=== PATIENT | female | born 1970 | race African-American/Black ===

== ENCOUNTER 2018-09-08 18:07 | Emergency (ER) | payer MEDICAID, OTHER ==
[~2018-09-08] VITALS: Ht 154.9 cm; Wt 86.2 kg
[2018-09-08 18:35] LABS: BASOPHILS % (AUTO) 0 % (0-10); EOSINOPHILS # (AUTO) 0.1 10^3/uL (0.0-0.3); EOSINOPHILS % (AUTO) 3 % (0-10); HEMATOCRIT 37 % (35-52); HEMOGLOBIN 11.4 G/DL (11.5-16.0); LYMPHOCYTES # (AUTO) 2.1 X 10^3 (1.0-4.0); LYMPHOCYTES % (AUTO) 40 % (12-44); MEAN CORPUSCULAR HEMOGLOBIN 26 PG (25-34); MEAN CORPUSCULAR HGB CONC 31 G/DL (32-36); MEAN CORPUSCULAR VOLUME 84 FL (80-99); MEAN PLATELET VOLUME 9.8 FL (7.4-10.4); MONOCYTES # (AUTO) 0.5 X 10^3 (0.0-1.0); MONOCYTES % (AUTO) 10 % (0-12); NEUTROPHILS # (AUTO) 2.4 X 10^3 (1.8-7.8); NEUTROPHILS % (AUTO) 46 % (42-75); PLATELET COUNT 242 10^3/uL (130-400); RED CELL DISTRIBUTION WIDTH 16.1 % (10.0-14.5); WHITE BLOOD COUNT 5.2 10^3/uL (4.3-11.0)
[2018-09-08] MEDS ORDERED: VENL150C98 PO (18:46)
[2018-09-08] MEDS ORDERED: GABA-488 PO (18:46)
[2018-09-08] MEDS ORDERED: METO50TA15 PO (18:46)
[2018-09-08] MEDS ORDERED: HYDR-3816 PO (18:46)
[2018-09-08] MEDS ORDERED: TIZA4TAB3 PO (18:46)
[2018-09-08] MEDS ORDERED: QUET300T71 PO (18:46)
[2018-09-08] MEDS ORDERED: ZIPR20CA24 PO (18:46)
[2018-09-08 18:53] LABS: ERYTHROCYTE SEDIMENTATION RATE 9 MM/HR (0-20)
[2018-09-08 18:55] LABS: ALANINE AMINOTRANSFERASE 34 U/L (0-55); ALBUMIN 4.2 GM/DL (3.2-4.5); ALKALINE PHOSPHATASE 50 U/L (40-136); BILIRUBIN,TOTAL 0.2 MG/DL (0.1-1.0); BUN/CREATININE RATIO 12; CALCIUM 9.6 MG/DL (8.5-10.1); CARBON DIOXIDE 27 MMOL/L (21-32); CHLORIDE 103 MMOL/L (98-107); CREATININE SERUM 0.78 MG/DL (0.60-1.30); GFR ESTIMATED > 60; GLUCOSE 102 MG/DL (70-105); POTASSIUM 4.2 MMOL/L (3.6-5.0); SODIUM 141 MMOL/L (135-145); TOTAL PROTEIN 7.2 GM/DL (6.4-8.2); URIC ACID 5.9 MG/DL (2.6-7.2)
--- NOTE | 2018-09-08 19:29 | ED General ---
General Chief Complaint: General Problems/Pain Stated Complaint: FLUID RETENTION Nursing Triage Note: PT REPORTS LEG SWELLING FOR 3 DAYS. PT REPORTS SHE ALSO GETS FATIGUED EASILY. PT WAS SEEN AT [facility] IN [facility] AND WAS TOLD TO ELEVATE FEET. PT COMPLAINS OF LEG SORENESS DUE TO SWELLING. Nursing Sepsis Screen: No Definite Risk Source of Information: Patient Exam Limitations: No Limitations History of Present Illness Date Seen by Provider: Sep 08, 2018 Time Seen by Provider: 18:21 Allergies and Home Medications Allergies Coded Allergies: Penicillins (Unverified Allergy, Unknown, 09/08/18) ibuprofen (Unverified Allergy, Unknown, 09/08/18) Home Medications Gabapentin 300 Mg Capsule, 300 MG PO TID, (Reported) Hydrocodone/Acetaminophen 1 Each Tablet, 325 MG PO TID PRN for PAIN-MODERATE TO SEVERE, (Reported) Metoprolol Tartrate 50 Mg Tablet, 50 MG PO BID, (Reported) Quetiapine Fumarate 300 Mg Tab.er.24h, 300 MG PO DAILY, (Reported) Tizanidine HCl 4 Mg Tablet, 4 MG PO Q8H PRN for BACK PAIN, (Reported) Venlafaxine HCl 150 Mg Cap.er.24h, 150 MG PO DAILY, (Reported) Ziprasidone HCl 20 Mg Capsule, 20 MG PO DAILY, (Reported) Past Drviqmd-Bkjmtb-Djkuhb Hx Patient Social History Alcohol Use: Occasionally Uses Alcohol Beverage of Choice: Beer Recreational Drug Use: No Smoking Status: Current Everyday Smoker Type Used: Cigarettes Recent Foreign Travel: No Contact w/Someone Who Travel: No Recent Infectious Disease Expo: No Recent Hopitalizations: No Seasonal Allergies Seasonal Allergies: No Past Medical History Surgeries: Yes Adenoidectomy, Gallbladder, Hysterectomy Respiratory: No Cardiac: No Neurological: Yes Neuropathy 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 oz. 86.700852wd; BMI Method:Stated Progress/Results/Core Measures Suspected Sepsis Recent Fever Within 48 Hours: No Infection Criteria Present: None New/Unexplained Altered Menta: No Sepsis Screen: No Definite Risk SIRS Temperature:96.1 Pulse: 89 Respiratory Rate: 18 Laboratory Tests 09/08/18 18:20: White Blood Count 5.2 Blood Pressure 144 /71 Mean: 95 Laboratory Tests 09/08/18 18:20: Creatinine 0.78, Platelet Count 242, Total Bilirubin 0.2 Results/Orders Lab Results Laboratory Tests Test 09/08/18 18:20 Range/Units White Blood Count 5.2 4.3-11.0 10^3/uL Red Blood Count 4.39 4.35-5.85 10^6/uL Hemoglobin 11.4 L 11.5-16.0 G/DL Hematocrit 37 35-52 % Mean Corpuscular Volume 84 80-99 FL Mean Corpuscular Hemoglobin 26 25-34 PG Mean Corpuscular Hemoglobin Concent 31 L 32-36 G/DL Red Cell Distribution Width 16.1 H 10.0-14.5 % Platelet Count 242 130-400 10^3/uL Mean Platelet Volume 9.8 7.4-10.4 FL Neutrophils (%) (Auto) 46 42-75 % Lymphocytes (%) (Auto) 40 12-44 % Monocytes (%) (Auto) 10 0-12 % Eosinophils (%) (Auto) 3 0-10 % Basophils (%) (Auto) 0 0-10 % Neutrophils # (Auto) 2.4 1.8-7.8 X 10^3 Lymphocytes # (Auto) 2.1 1.0-4.0 X 10^3 Monocytes # (Auto) 0.5 0.0-1.0 X 10^3 Eosinophils # (Auto) 0.1 0.0-0.3 10^3/uL Basophils # (Auto) 0.0 0.0-0.1 10^3/uL Erythrocyte Sedimentation Rate 9 0-20 MM/HR Sodium Level 141 135-145 MMOL/L Potassium Level 4.2 3.6-5.0 MMOL/L Chloride Level 103 98-107 MMOL/L Carbon Dioxide Level 27 21-32 MMOL/L Anion Gap 11 5-14 MMOL/L Blood Urea Nitrogen 9 7-18 MG/DL Creatinine 0.78 0.60-1.30 MG/DL Estimat Glomerular Filtration Rate > 60 BUN/Creatinine Ratio 12 Glucose Level 102 70-105 MG/DL Uric Acid 5.9 2.6-7.2 MG/DL Calcium Level 9.6 8.5-10.1 MG/DL Corrected Calcium 9.4 8.5-10.1 MG/DL Total Bilirubin 0.2 0.1-1.0 MG/DL Aspartate Amino Transf (AST/SGOT) 31 5-34 U/L Alanine Aminotransferase (ALT/SGPT) 34 0-55 U/L Alkaline Phosphatase 50 40-136 U/L C-Reactive Protein High Sensitivity 0.49 0.00-0.50 MG/DL B-Type Natriuretic Peptide 15.1 <100.0 PG/ML Total Protein 7.2 6.4-8.2 GM/DL Albumin 4.2 3.2-4.5 GM/DL My Orders Orders - MARIBELL SUNG Cbc With Automated Diff (09/08/18 18:21) Comprehensive Metabolic Panel (09/08/18 18:21) Erythrocyte Sedimentation Rate (09/08/18 18:21) Hs C Reactive Protein (09/08/18 18:21) BNP (09/08/18 18:21) Uric Acid (09/08/18 18:21) Saline Lock/Iv-Start (09/08/18 18:22) Vital Signs/I&O 09/08/18 18:14 Temp 96.1 Pulse 89 Resp 18 B/P (MAP) 144/71 (95) Pulse Ox 96 Capillary Refill : Less Than 3 Seconds Blood Pressure Mean: 95 Departure Impression Primary Impression: Lower extremity edema Disposition: 01 HOME, SELF-CARE Condition: Stable/Unchanged Departure-Patient Inst. Decision time for Depature: 19:27 Referrals: NO,LOCAL PHYSICIAN (PCP) Primary Care Physician Patient Instructions: Dependent Edema (DC) Add. Discharge Instructions: Elevate her lower extremities as much as possible. Wear the compression stockings during the day and remove them at night as needed to help control your swelling. Follow-up with your primary care provider within 1 week for recheck. Return back to the emergency room for worsening symptoms or concerns as needed. All discharge instructions reviewed with patient and/or family. Voiced understanding. MARIBELL SUNG Sep 08, 2018 19:29
[2018-09-08 19:38] VITALS: BP 147/101
== END 2018-09-08 19:38 | disposition home or self-care (01) ==
LOC: EDUNIT# 18:07 → ER 18:09
DX: R60.0 Localized edema (principal); K58.9 Irritable bowel syndrome, unspecified; M19.90 Unspecified osteoarthritis, unspecified site; F17.210 Nicotine dependence, cigarettes, uncomplicated; Z88.0 Allergy status to penicillin; Z88.6 Allergy status to analgesic agent; Z90.710 Acquired absence of both cervix and uterus
CPT/HCPCS: 36415; 80053; 83880; 84550; 85025; 85652; 86141; 99281

== ENCOUNTER 2018-10-04 13:38 | Emergency (ER) | payer MEDICAID ==
[~2018-10-04] VITALS: Ht 154.9 cm; Wt 90.3 kg
[~2018-10-04 13:38] MED LIST: GABA-488 PO; HYDR-3816 PO; METO50TA15 PO; QUET300T71 PO; TIZA4TAB3 PO; VENL150C98 PO; ZIPR20CA24 PO
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
--- OUTSIDE RECORDS SUMMARY | 2018-10-04 13:46 | XMS REPORT ---
Author Author VARSHA HOLDEN Organization 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 [address], [place] [address] Dec, Bipolar II disorder F31.81 [facility] [address] [place] [address] Dec, [facility] [address] [place] [address] Dec, [facility] [id number] [place] [address] Dec, [facility] [address] [address] Nov, 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 [id number] [place] [address] October, Depressive disorder, not elsewhere classified F32.9 and Anxiety state, unspecified F41.1 [facility] [id number] [place], [place] [address] October, Sore throat J02.9 and Strep pharyngitis J02.0 [place] [facility] [id number] [place] [address] October, Chronic post-traumatic stress disorder F43.12 ; Anxiety state, unspecified F41.1 and Depressive disorder, not elsewhere classified F32.9 [place] [facility] [address] [place] [address] October, Depressive disorder, not elsewhere classified F32.9 and Anxiety state, unspecified F41.1 [place] [address] [place] [address] October, Depressive disorder, not elsewhere classified F32.9 and Anxiety state, unspecified F41.1 IMMUNIZATIONS No Known Immunizations SOCIAL HISTORY Never Assessed REASON FOR VISIT Anxiety concerns PLAN OF CARE VITAL SIGNS MEDICATIONS No Known Medications RESULTS No Results PROCEDURES No Known procedures INSTRUCTIONS MEDICATIONS ADMINISTERED No Known Medications MEDICAL (GENERAL) HISTORY Type Description Date Medical [...] Onesimo Torres Hospitalization History Drug Rehab Inpatient [facility] 1993 Hospitalization History Drug Rehab Inpatient [facility] 2002 Hospitalization History childbirth x 4 89, 91,92, 94
--- OUTSIDE RECORDS SUMMARY | 2018-10-04 13:46 | XMS REPORT ---
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 1993 Hospitalization History Drug Rehab Inpatient [facility] 2002 Hospitalization History childbirth x 4 89, 91,92, 94
--- OUTSIDE RECORDS SUMMARY | 2018-10-04 13:46 | XMS REPORT ---
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 293793556 Problem Chronic post-traumatic stress disorder F43.12 Active 878000402 ALLERGIES Substance Reaction Event Type Date Status Adhesive Tape Unknown Drug Allergy October, Active SulfADIAZINE Unknown Drug Allergy October, Active Silicone Unknown Drug Allergy October, Active PrednisoLONE Unknown Drug Allergy October, Active Penicillamine Unknown Drug Allergy October, Active Neosporin Unknown Drug Allergy October, Active Neomycin Sulfate Unknown Drug Allergy October, Active Flagyl Unknown Drug Allergy October, Active Erythromycin Unknown Drug Allergy October, Active SOCIAL HISTORY Never Assessed PLAN OF CARE Activity Details Follow Up 3 Weeks Reason: VITAL SIGNS Height 62.0 in 2016-10-27 Weight 149.2 lbs 2016-10-27 Heart Rate 96 bpm 2016-10-27 Respiratory Rate 20 2016-10-27 BMI 27.29 kg/m2 2016-10-27 Blood pressure systolic 89 mmHg 2016-10-27 Blood pressure diastolic 56 mmHg 2016-10-27 MEDICATIONS Medication Instructions Dosage Frequency Start Date End Date Duration Status Tizanidine HCl 4 MG Orally every 6 hours 1 tablet as needed 6h Active Seroquel 100 mg Active Effexor XR 75 MG Orally Once a day 1 capsule with food 24h 30 days Active Xanax 0.25 MG Orally 3 times a day 1 tablet 8h 28 days Active Mirtazapine 15 MG Orally Once a day 1 tablet on the tongue and allow to dissolve at bedtime 24h October, 30 day(s) Active Flonase Allergy Relief 50 MCG/ACT Nasally Once a day 1 spray in each nostril 24h Active Premarin 0.45 MG Orally Daily for Three Weeks, 1 Week off 1 tablet Active Atorvastatin Calcium 20 MG Orally Once a day 1 tablet 24h Active Effexor XR 150 MG Orally Once a day 1 capsule with food 24h October, 30 day(s) Active Gabapentin 300 MG Orally 3 times a day 1 tablet 8h Active Cholecalciferol 3000 UNIT Orally Once a day 1 tablet 24h Active Lisinopril-Hydrochlorothiazide 20-12.5 MG Orally Once a day 1 tablet 24h Active Hydrocodone-Acetaminophen 7.5-325 MG Orally every 8 hrs 1 tablet as needed 8h Active Triamcinolone Acetonide 0.1 % Externally Twice a day 1 application to affected area 12h Active MiraLax - Orally Once a day 1 packet mixed with 8 ounces of fluid 24h Active DiphenhydrAMINE HCl 25 MG Orally every 6 hrs 1 capsule as needed 6h Active Claritin-D 12 Hour 5-120 MG Orally every 12 hrs 1 tablet as needed 12h Active Albuterol Sulfate HFA 108 (90 Base) MCG/ACT Inhalation every 4 hrs 2 puffs as needed 4h Active RESULTS No Results PROCEDURES No Known procedures IMMUNIZATIONS No Known Immunizations MEDICAL (GENERAL) HISTORY [...] Onesimo Torres Hospitalization History Drug Rehab Inpatient [facility] 1993 Hospitalization History Drug Rehab Inpatient [facility] 2002 Hospitalization History childbirth x 4 89, 91,92, 94
--- OUTSIDE RECORDS SUMMARY | 2018-10-04 13:46 | XMS REPORT ---
Author Author VARSHA HOLDEN Organization [facility] Address [address] [place] [address] Care Team Providers Care Nuclear Plant Equipment Operator Name Role Phone AIDEEDEJUAN INIGUEZA Unavailable PROBLEMS Type Condition ICD9-CM Code MKH16-FF Code Onset Dates Condition Status SNOMED Code Problem Bipolar II disorder F31.81 Active 01738456 Problem Borderline personality disorder F60.3 Active 79485631 Problem Depressive disorder, not elsewhere classified F32.9 Active 40457359 Problem Anxiety state, unspecified F41.1 Active 307805150 Problem Methamphetamine use disorder, severe, in early remission, 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 394507863 Problem Chronic post-traumatic stress disorder F43.12 Active 381102145 ALLERGIES No Information ENCOUNTERS Encounter Location Date Diagnosis [facility] [address] [place] [address] Jan, Methamphetamine use disorder, severe, in early remission, 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 ; Borderline personality disorder F60.3 ; Bipolar II disorder F31.81 and Chronic post-traumatic stress disorder F43.12 [facility] [address], [place] [address] Dec, Bipolar II disorder F31.81 [facility] [address] [place] [address] Dec, [facility] [address] [place] [address]- [address] Dec, [facility] [id number] [place] [address] Dec, [facility] [address] [address] Nov, [facility] [id number] [place] [address] Nov, Bipolar II disorder F31.81 ; Borderline personality disorder F60.3 ; Methamphetamine use disorder, severe, in early remission, 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 and Chronic post-traumatic stress disorder F43.12 [facility] [address] [place] [address] October, Pharyngitis due to other organism J02.8 [place] [facility] [id number] [place] [address] October, Depressive disorder, not elsewhere classified F32.9 and Anxiety state, unspecified F41.1 [facility] [id number] [place] [phone] October, Sore throat J02.9 and Strep pharyngitis J02.0 [place] [id number] [place] [address] October, Chronic post-traumatic stress disorder F43.12 ; Anxiety state, unspecified F41.1 and Depressive disorder, not elsewhere classified F32.9 [place] [address] [place] [address] 7[address]72- [address] October, Depressive disorder, not elsewhere classified F32.9 and Anxiety state, unspecified F41.1 [place] [address] [place] [address]- [address] October, Depressive disorder, not elsewhere classified F32.9 and Anxiety state, unspecified F41.1 IMMUNIZATIONS No Known Immunizations SOCIAL HISTORY Never Assessed REASON FOR VISIT med refill PLAN OF CARE VITAL SIGNS MEDICATIONS Medication Instructions Dosage Frequency Start Date End Date Duration Status Effexor XR 150 MG Orally Once a day in morning 1 capsule with food October 30 days Active Latuda 40 MG Orally Once a day 1 tablet with dinner 24h Nov, 30 day(s) Active HydrOXYzine HCl 50 MG Orally 3 times a day 1 tablet as needed 8h 30 days Active Mirtazapine 15 MG Orally Once a day at night 1 tablet on the tongue and allow to dissolve at bedtime October, 30 days Active RESULTS No Results PROCEDURES No Known [...] Onesimo Torres Hospitalization History Drug Rehab Inpatient [facility] 1993 Hospitalization History Drug Rehab Inpatient [facility] 2002 Hospitalization History childbirth x 4 89, 91,92, 94
--- OUTSIDE RECORDS SUMMARY | 2018-10-04 13:47 | XMS REPORT ---
Author Author VARSHA HOLDEN Organization [facility] Address [address] [place] [address] Care Team Providers Care Strategic Insights Lead Name Role Phone AIDEEDEJUAN INIGUEZA Unavailable PROBLEMS Type Condition ICD9-CM Code ENH51-MB Code Onset Dates Condition Status SNOMED Code Problem Bipolar II disorder F31.81 Active 63299066 Problem Borderline personality disorder F60.3 Active 32677303 Problem Depressive disorder, not elsewhere classified F32.9 Active 03473137 Problem Anxiety state, unspecified F41.1 Active 369305999 Problem Methamphetamine use disorder, severe, in early remission, 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 413688663 Problem Chronic post-traumatic stress disorder F43.12 Active 212930001 ALLERGIES No Information ENCOUNTERS Encounter Location Date Diagnosis [facility] [address] [place] [address] Jan, Methamphetamine use disorder, severe, in early remission, 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 ; Borderline personality disorder F60.3 ; Bipolar II disorder F31.81 and Chronic post-traumatic stress disorder F43.12 [facility] [address] [place] [address] Dec, Bipolar II disorder F31.81 [facility] [address] [place] [address] Dec, [facility] [address] [place] [address]- [address] Dec, [facility] [id number] [place] [address]14- [address] Dec, [facility] [address] [place] [address] Nov, [facility] [id number] [place] [phone] Nov, Bipolar II disorder F31.81 ; Borderline personality disorder F60.3 ; Methamphetamine use disorder, severe, in early remission, 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 and Chronic post-traumatic stress disorder F43.12 [facility] [address] [place] [address] October, Pharyngitis due to other organism J02.8 [place] [id number] [place] [address]- [address] October, Depressive disorder, not elsewhere classified F32.9 and Anxiety state, unspecified F41.1 [facility] [id number] [place], [place] [address] October, Sore throat J02.9 and Strep pharyngitis J02.0 [place] [id number] [place] [address]- [address] October, Chronic post-traumatic stress disorder F43.12 ; Anxiety state, unspecified F41.1 and Depressive disorder, not elsewhere classified F32.9 [place] [address] [place] [address] October, Depressive disorder, not elsewhere classified F32.9 and Anxiety state, unspecified F41.1 [place] [address] [place] [address]- [address] October, Depressive disorder, not elsewhere classified F32.9 and Anxiety state, unspecified F41.1 IMMUNIZATIONS No Known Immunizations SOCIAL HISTORY Never Assessed REASON FOR VISIT appointment PLAN OF CARE VITAL SIGNS MEDICATIONS No [...] Onesimo Torres Hospitalization History Drug Rehab Inpatient [facility] 1993 Hospitalization History Drug Rehab Inpatient [facility] 2002 Hospitalization History childbirth x 4 89, 91,92, 94
--- OUTSIDE RECORDS SUMMARY | 2018-10-04 13:48 | XMS REPORT ---
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 1993 Hospitalization History Drug Rehab Inpatient [facility] 2002 Hospitalization History childbirth x 4 89, 91,92, 94
--- OUTSIDE RECORDS SUMMARY | 2018-10-04 13:48 | XMS REPORT ---
Author Author VARSHA HOLDEN Organization [facility] Address [address] [place] [address] Care Team Providers Care Equipment Specialist Name Role Phone AIDEEDEJUAN INIGUEZA Unavailable PROBLEMS Type Condition ICD9-CM Code XDS40-PI Code Onset Dates Condition Status SNOMED Code Problem Bipolar II disorder F31.81 Active 90410772 Problem Borderline personality disorder F60.3 Active 78250104 Problem Depressive disorder, not elsewhere classified F32.9 Active 23805141 Problem Anxiety state, unspecified F41.1 Active 922421991 Problem Methamphetamine use disorder, severe, in early remission, 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 141388715 Problem Chronic post-traumatic stress disorder F43.12 Active 276963385 ALLERGIES Substance Reaction Event Type Date Status Adhesive Tape Unknown Drug Allergy Nov, Active SulfADIAZINE Unknown Drug Allergy Nov, Active Silicone Unknown Drug Allergy Nov, Active PrednisoLONE Unknown Drug Allergy Nov, Active Penicillamine Unknown Drug Allergy Nov, Active Neosporin Unknown Drug Allergy Nov, Active Neomycin Sulfate Unknown Drug Allergy Nov, Active Flagyl Unknown Drug Allergy Nov, Active Erythromycin Unknown Drug Allergy Nov, Active ENCOUNTERS Encounter Location Date Diagnosis [facility] [address] [place] [address] Jan, Methamphetamine use disorder, severe, in early remission, 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 ; Borderline personality disorder F60.3 ; Bipolar II disorder F31.81 and Chronic post-traumatic stress disorder F43.12 [facility] [id number] [place] [address] Dec, Bipolar II disorder F31.81 [facility] [address] [place] [address] 85877[address] Dec, [facility] [id number] [place] [address] 98179[address] Dec, [facility] [address] [address] Dec, [facility] [id number] [place] [address] 50228[address] Nov, [facility] [id number] [place] [address] 79752[address] Nov, Bipolar II disorder F31.81 ; Borderline personality disorder F60.3 ; Methamphetamine use disorder, severe, in early remission, 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 and Chronic post-traumatic stress disorder F43.12 [facility] [id number] [place] [address] October, Pharyngitis due to other organism J02.8 [place] [id number] [place] [address] October, Depressive disorder, not elsewhere classified F32.9 and Anxiety state, unspecified F41.1 [facility] [address] [place] [address] October, Sore throat J02.9 and Strep pharyngitis J02.0 [facility] [address] [place] [address] 81091- 67[address] October, Chronic post-traumatic stress disorder F43.12 ; Anxiety state, unspecified F41.1 and Depressive disorder, not elsewhere classified F32.9 [facility] [address] [place] [address] 55206- [address] October, Depressive disorder, not elsewhere classified F32.9 and Anxiety state, unspecified F41.1 [facility] [address] [place] [address] 24623[address] October, Depressive disorder, not elsewhere classified F32.9 and Anxiety state, unspecified F41.1 IMMUNIZATIONS No Known Immunizations SOCIAL HISTORY Never Assessed REASON FOR VISIT aurelia - Yasir DILLARD PLAN OF CARE Activity Details Follow Up 3 Weeks Reason: VITAL SIGNS Height 62.0 in 2016-12-09 Weight 153.6 lbs 2016-12-09 Heart Rate 104 bpm 2016-12-09 Respiratory Rate 22 2016-12-09 BMI 28.09 kg/m2 2016-12-09 Blood pressure systolic 118 mmHg 2016-12-09 Blood pressure diastolic 75 mmHg 2016-12-09 MEDICATIONS Medication Instructions Dosage Frequency Start Date End Date Duration Status Atorvastatin Calcium 20 MG Orally Once a day 1 tablet 24h Active MiraLax - Orally Once a day 1 packet mixed with 8 ounces of fluid 24h Active Lisinopril-Hydrochlorothiazide 20-12.5 MG Orally Once a day 1 tablet 24h Active Flonase Allergy Relief 50 MCG/ACT Nasally Once a day 1 spray in each nostril 24h Active Claritin-D 12 Hour 5-120 MG Orally every 12 hrs 1 tablet as needed 12h Active Latuda 40 MG Orally Once a day 1 tablet with dinner 24h Nov, 30 day(s) Active Gabapentin 300 MG Orally at bedtime 1 tablet Active Triamcinolone Acetonide 0.1 % Externally Twice a day 1 application to affected area 12h Active HydrOXYzine HCl 50 MG Orally 3 times a day 1 tablet as needed 8h 30 days Active Effexor XR 150 MG Orally Once a day in morning 1 capsule with food October 30 days Active Albuterol Sulfate HFA 108 (90 Base) MCG/ACT Inhalation every 4 hrs 2 puffs as needed 4h Active Tizanidine HCl 4 MG Orally every 6 hours 1 tablet as needed 6h Active Premarin 0.45 MG Orally Daily for Three Weeks, 1 Week off 1 tablet Active Mirtazapine 15 MG Orally Once a day at night 1 tablet on the tongue and allow to dissolve at bedtime October, 30 days Active DiphenhydrAMINE HCl 25 MG Orally every 6 hrs 1 capsule as needed 6h Active Hydrocodone-Acetaminophen 10-325 MG Orally every 8 hrs 1 tablet as needed 8h Active RESULTS No Results PROCEDURES No Known [...] Onesimo Torres Hospitalization History Drug Rehab Inpatient [facility] 1993 Hospitalization History Drug Rehab Inpatient [facility] 2002 Hospitalization History childbirth x 4 89, 91,92, 94
--- OUTSIDE RECORDS SUMMARY | 2018-10-04 13:48 | XMS REPORT ---
Author Author MARK LYLES Organization [facility] Address [address] [place] [address] Care Team Providers Care Import Coordination And Production Head Name Role Phone MARK LYLES Unavailable PROBLEMS Type Condition ICD9-CM Code FQE08-NS Code Onset Dates Condition Status SNOMED Code Problem Bipolar II disorder F31.81 Active 74362403 Problem Borderline personality disorder F60.3 Active 34204428 Problem Depressive disorder, not elsewhere classified F32.9 Active 00331056 Problem Anxiety state, unspecified F41.1 Active 024873533 Problem Methamphetamine use disorder, severe, in early remission, 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 989150163 Problem Chronic post-traumatic stress disorder F43.12 Active 712760780 ALLERGIES Substance Reaction Event Type Date Status [...] PLAN OF CARE Activity Details Follow Up prn Reason: VITAL SIGNS Height 62.0 in 2016-10-27 Weight 149 lbs 2016-10-27 Temperature 98.4 degrees Fahrenheit 2016-10-27 Heart Rate 96 bpm 2016-10-27 Respiratory Rate 20 2016-10-27 BMI 27.25 kg/m2 2016-10-27 Blood pressure systolic 89 mmHg 2016-10-27 Blood pressure diastolic 56 mmHg 2016-10-27 MEDICATIONS Medication Instructions Dosage Frequency Start Date End Date Duration Status Albuterol Sulfate HFA 108 (90 Base) MCG/ACT Inhalation every 4 hrs 2 puffs as needed 4h Active Effexor XR 75 MG Orally Once a day 1 capsule with food 24h 30 days Active Flonase Allergy Relief 50 MCG/ACT Nasally Once a day 1 spray in each nostril 24h Active Hydrocodone-Acetaminophen 7.5-325 MG Orally every 8 hrs 1 tablet as needed 8h Active Cholecalciferol 3000 UNIT Orally Once a day 1 tablet 24h Active Lisinopril-Hydrochlorothiazide 20-12.5 MG Orally Once a day 1 tablet 24h Active Effexor XR 150 MG Orally Once a day 1 capsule with food 24h October, 30 day(s) Active MiraLax - Orally Once a day 1 packet mixed with 8 ounces of fluid 24h Active Tizanidine HCl 4 MG Orally every 6 hours 1 tablet as needed 6h Active Claritin-D 12 Hour 5-120 MG Orally every 12 hrs 1 tablet as needed 12h Active Premarin 0.45 MG Orally Daily for Three Weeks, 1 Week off 1 tablet Active DiphenhydrAMINE HCl 25 MG Orally every 6 hrs 1 capsule as needed 6h Active Seroquel 100 mg Active Keflex 500 MG Orally every 12 hrs 1 capsule 12h October, October, 10 day(s) Active Gabapentin 300 MG Orally 3 times a day 1 tablet 8h Active Atorvastatin Calcium 20 MG Orally Once a day 1 tablet 24h Active Xanax 0.25 MG Orally 3 times a day 1 tablet 8h 28 days Active Mirtazapine 15 MG Orally Once a day 1 tablet on the tongue and allow to dissolve at bedtime 24h October, 30 day(s) Active Triamcinolone Acetonide 0.1 % Externally Twice a day 1 application to affected area 12h Active RESULTS Name Result Date Reference Range STREP A (IN HOUSE) 2016-10-27 STREP A Positive Control + Lot # [id number] Exp date 03/20/18 PROCEDURES Procedure Date Ordered Result Body Site STREP A ASSAY W/OPTIC October 27, 2016 IMMUNIZATIONS No Known Immunizations [...] Onesimo Torres Hospitalization History Drug Rehab Inpatient [facility] 1993 Hospitalization History Drug Rehab Inpatient [facility] 2002 Hospitalization History childbirth x 4 89, 91,92, 94
--- OUTSIDE RECORDS SUMMARY | 2018-10-04 13:48 | XMS REPORT ---
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 285870826 Problem Chronic post-traumatic stress disorder F43.12 Active 453964579 ALLERGIES No Information ENCOUNTERS Encounter Location Date Diagnosis [facility] [address] [place] [address] Jan, Methamphetamine use disorder, severe, in early remission, 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 ; Borderline personality disorder F60.3 ; Bipolar II disorder F31.81 and Chronic post-traumatic stress disorder F43.12 [facility] [address] [address] Dec, Bipolar II disorder F31.81 [facility] [address] [place] [address] 70869- [address] Dec, [facility] [address] [place] [address] 27650- 6008 Dec, [facility] [id number] [place] [address] 65456- [address] Dec, [facility] [address] [address] Nov, [facility] [id number] [place] [address] 57887- [address] Nov, Bipolar II disorder F31.81 ; Borderline personality disorder F60.3 ; Methamphetamine use disorder, severe, in early remission, 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 and Chronic post-traumatic stress disorder F43.12 [facility] [address] [place] [address]23[address] October, Pharyngitis due to other organism J02.8 [place] [id number] [place] [address] 75376- [address] October, Depressive disorder, not elsewhere classified F32.9 and Anxiety state, unspecified F41.1 [facility] [id number] [place] [address] 513780 -24[address] October, Sore throat J02.9 and Strep pharyngitis J02.0 [place] [id number] [place] [address] 55271- [address] October, Chronic post-traumatic stress disorder F43.12 ; Anxiety state, unspecified F41.1 and Depressive disorder, not elsewhere classified F32.9 [place] [address] [place] [address] 47945- [address] October, Depressive disorder, not elsewhere classified F32.9 and Anxiety state, unspecified F41.1 [place] [address] [place] [address] 37043- [address] October, Depressive disorder, not elsewhere classified F32.9 and Anxiety state, unspecified F41.1 IMMUNIZATIONS No Known Immunizations SOCIAL HISTORY Never Assessed REASON FOR VISIT f/u PLAN OF CARE Activity Details Follow Up 4 Weeks Reason: VITAL SIGNS MEDICATIONS Medication Instructions Dosage Frequency Start Date End Date Duration Status Hydrocodone-Acetaminophen 7.5-325 MG Orally every 8 hrs 1 tablet as needed 8h Active Lisinopril-Hydrochlorothiazide 20-12.5 MG Orally Once a day 1 tablet 24h Active DiphenhydrAMINE HCl 25 MG Orally every 6 hrs 1 capsule as needed 6h Active Flonase Allergy Relief 50 MCG/ACT Nasally Once a day 1 spray in each nostril 24h Active Latuda 60 MG Orally Once a day 1 tablet with food 24h Nov, 30 days Active Tizanidine HCl 4 MG Orally every 6 hours 1 tablet as needed 6h Active Gabapentin 300 MG Orally Three times a day 1 tablet 8h 30 days Active Premarin 0.45 MG Orally Daily for Three Weeks, 1 Week off 1 tablet Active HydrOXYzine HCl 50 MG Orally 3 times a day 1 tablet as needed 8h 30 days Active MiraLax - Orally Once a day 1 packet mixed with 8 ounces of fluid 24h Active Neurontin 300 MG Orally Qam and in the afternoon 1 capsule Active Omeprazole 20 MG Active Effexor XR 150 MG Orally Once a day in morning 1 capsule with food October 30 days Active Albuterol Sulfate HFA 108 (90 Base) MCG/ACT Inhalation every 4 hrs 2 puffs as needed 4h Active Triamcinolone Acetonide 0.1 % Externally Twice a day 1 application to affected area 12h Active Cholecalciferol 3000 UNIT Orally Once a day 1 tablet 24h Active Melatonin 5 MG Orally Once a day 1 tablet at bedtime as needed with food 24h Jan, 30 day(s) Active RESULTS No Results PROCEDURES No Known [...] Onesimo Torres Hospitalization History Drug Rehab Inpatient [facility] 1993 Hospitalization History Drug Rehab Inpatient [facility] 2002 Hospitalization History childbirth x 4 89, 91,92, 94
--- OUTSIDE RECORDS SUMMARY | 2018-10-04 13:49 | XMS REPORT | Continuity of Care Document ---
Author Organization Unknown Address Unknown Allergies There is no data. Medications There is no data. Problems There is no data. Procedures There is no data. Results Test Result Range TSH w/ FREE T4 - 09/22/18 11:11 TSH 1.24 mIU/L NRG T4, FREE 0.8 ng/dL 0.8-1.8 CMP - 09/22/18 11:11 GLUCOSE 82 mg/dL 65-99 UREA NITROGEN (BUN) 11 mg/dL 7-25 CREATININE 0.69 mg/dL 0.50-1.10 eGFR NON-AFR. [place] 104 mL/min/1.73m2 > OR=60 eGFR 120 mL/min/1.73m2 > OR=60 BUN/CREATININE RATIO NOT APPLICABLE (calc) 6-22 SODIUM 138 mmol/L 135-146 POTASSIUM 4.2 mmol/L 3.5-5.3 CHLORIDE 100 mmol/L 98-110 CARBON DIOXIDE 27 mmol/L 20-32 CALCIUM 9.9 mg/dL 8.6-10.2 PROTEIN, TOTAL 7.4 g/dL 6.1-8.1 ALBUMIN 4.5 g/dL 3.6-5.1 GLOBULIN 2.9 g/dL (calc) 1.9-3.7 ALBUMIN/GLOBULIN RATIO 1.6 (calc) 1.0-2.5 BILIRUBIN, TOTAL 0.3 mg/dL 0.2-1.2 ALKALINE PHOSPHATASE 49 U/L 33-115 AST 24 U/L 10-35 ALT 23 U/L 6-29 CBC - 09/22/18 11:11 WHITE BLOOD CELL COUNT 3.8 Thousand/uL 3.8-10.8 RED BLOOD CELL COUNT 4.89 Million/uL 3.80-5.10 HEMOGLOBIN 12.7 g/dL 11.7-15.5 HEMATOCRIT 40.0 % 35.0-45.0 MCV 81.8 fL 80.0-100.0 MCH 26.0 pg 27.0-33.0 MCHC 31.8 g/dL 32.0-36.0 RDW 15.3 % 11.0-15.0 PLATELET COUNT 281 Thousand/uL 140-400 MPV 9.2 fL 7.5-12.5 ABSOLUTE NEUTROPHILS 1752 cells/uL 5925-3346 ABSOLUTE LYMPHOCYTES 1547 cells/uL 850-3900 ABSOLUTE MONOCYTES 384 cells/uL 200-950 ABSOLUTE EOSINOPHILS 99 cells/uL 15-500 ABSOLUTE BASOPHILS 19 cells/uL 0-200 NEUTROPHILS 46.1 % NRG LYMPHOCYTES 40.7 % NRG MONOCYTES 10.1 % NRG EOSINOPHILS 2.6 % NRG BASOPHILS 0.5 % NRG Encounters ACCT No. Visit Date/Time Discharge Status Pt. Type Provider Facility Loc./Unit Complaint [id number] 09/22/2018 10:40:00 09/22/2018 23:59:59 [facility] Outpatient JENNIFER SANTANA [facility] [id number] 09/22/2018 10:40:00 Document Registration
--- OUTSIDE RECORDS SUMMARY | 2018-10-04 13:49 | XMS REPORT ---
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 355696858 Problem Chronic post-traumatic stress disorder F43.12 Active 756268102 ALLERGIES No Information ENCOUNTERS Encounter Location Date Diagnosis [facility] [address] [place] [address] Jan, Methamphetamine use disorder, severe, in early remission, 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 ; Borderline personality disorder F60.3 ; Bipolar II disorder F31.81 and Chronic post-traumatic stress disorder F43.12 [facility] [address], [place] [address] Dec, Bipolar II disorder F31.81 [facility] [address] [place] [address] Dec, [facility] [address] [place] [address] Dec, [facility] [id number] [place] [address] 9[address]- [address] Dec, [facility] [address], [place] [address] Nov, [facility] [id number] [place] [address] Nov, Bipolar II disorder F31.81 ; Borderline personality disorder F60.3 ; Methamphetamine use disorder, severe, in early remission, 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 and Chronic post-traumatic stress disorder F43.12 [facility] [address] [place], [place] [address] October, Pharyngitis due to other organism J02.[address] [place] [id number] [place] [address] 981884- [address] October, Depressive disorder, not elsewhere classified F32.9 and Anxiety state, unspecified F41.1 [facility] [id number] [place], [place] [address] October, Sore throat J02.9 and Strep pharyngitis J02.0 [place] [id number] [place] [address]37[address] October, Chronic post-traumatic stress disorder F43.12 ; Anxiety state, unspecified F41.1 and Depressive disorder, not elsewhere classified F32.9 [place] [id number] [place] [address] October, Depressive disorder, not elsewhere classified F32.9 and Anxiety state, unspecified F41.1 [place] [id number] [place] [address] 6[address]79- [address] October, Depressive disorder, not elsewhere classified F32.9 and Anxiety state, unspecified F41.1 IMMUNIZATIONS No Known Immunizations SOCIAL HISTORY Never Assessed REASON FOR VISIT Refill request PLAN OF CARE VITAL SIGNS MEDICATIONS No [...]
--- NOTE | 2018-10-04 14:03 | ED Integumentary General ---
General Chief Complaint: Skin/Wound Problems Stated Complaint: RASH Nursing Triage Note: Pt arrived by private car with chief complaint of a rash. Pt stated it has been going on for about 1-2 weeks and she has been trying to treat at home with benadryl and she just needs some relief. Pt stated it is underneath right breast, around right breast, in between breasts, in between both sides of groin. Pt stated it is on fire and hurts to pee. Was seen in [place] and they told her she had body ring worms, and she was worried, because she has new grandbaby and wants to make sure she doesn't give anything to her. History of Present Illness Date Seen by Provider: Oct 04, 2018 Time Seen by Provider: 13:50 This is a 48-year-old female that complains of a pruritic rash for about 2 weeks. She was seen at an outside hospital emergency department and prescribed an antifungal cream. She also was seen at urgent care for this same complaint. She is taking Benadryl and feels that it is not helping her. The rash is present below the breasts, below the abdominal pannus, and in the groin. No fever or chills. The rash is not painful. No difficulty swallowing or breathing , no wheezing or coughing. No other symptoms. Allergies and Home Medications Allergies Coded Allergies: Penicillins (Unverified Allergy, Unknown, 09/08/18) Sulfa (Sulfonamide Antibiotics) (Verified Allergy, Unknown, rash, 10/04/18) itching adhesive tape (Verified Allergy, Unknown, hives, 10/04/18) rash amitriptyline (Verified Allergy, Unknown, unknown, 10/04/18) bacitracin (Verified Allergy, Unknown, rash, 10/04/18) hives erythromycin base (Verified Allergy, Unknown, rash, 10/04/18) ibuprofen (Unverified Allergy, Unknown, 09/08/18) metronidazole (Verified Allergy, Unknown, hives, 10/04/18) hives/rash neomycin (Verified Allergy, Unknown, rash, 10/04/18) itching polymyxin B (Verified Allergy, Unknown, rash, 10/04/18) hives prednisolone (Verified Allergy, Unknown, rash, 10/04/18) prednisone (Verified Allergy, Unknown, rash, 10/04/18) Home Medications Gabapentin 300 Mg Capsule, 300 MG PO TID, (Reported) Hydrocodone/Acetaminophen 1 Each Tablet, 325 MG PO TID PRN for PAIN-MODERATE TO SEVERE, (Reported) Metoprolol Tartrate 50 Mg Tablet, 50 MG PO BID, (Reported) Quetiapine Fumarate 300 Mg Tab.er.24h, 300 MG PO DAILY, (Reported) Tizanidine HCl 4 Mg Tablet, 4 MG PO Q8H PRN for BACK PAIN, (Reported) Venlafaxine HCl 150 Mg Cap.er.24h, 150 MG PO DAILY, (Reported) Ziprasidone HCl 20 Mg Capsule, 20 MG PO DAILY, (Reported) Patient Home Medication List Home Medication List Reviewed: Yes Review of Systems Review of Systems Constitutional: no symptoms reported EENTM: no symptoms reported Respiratory: no symptoms reported Cardiovascular: no symptoms reported Gastrointestinal: no symptoms reported Genitourinary: no symptoms reported Musculoskeletal: no symptoms reported Skin: see HPI Psychiatric/Neurological: No Symptoms Reported Endocrine: No Symptoms Reported Past Jdfpfos-Gewfbo-Cjlqcf Hx Past Med/Social Hx: Reviewed Nursing Past Med/Soc Hx Patient Social History Alcohol Use: Denies Use Alcohol Beverage of Choice: Beer Recreational Drug Use: No Smoking Status: Current Everyday Smoker Type Used: Cigarettes 2nd Hand Smoke Exposure: Yes Recent Foreign Travel: No Contact w/Someone Who Travel: No Recent Infectious Disease Expo: No Recent Hopitalizations: No Physical Abuse: No Sexual Abuse: No Mistreated: No Fear: No Seasonal Allergies Seasonal Allergies: No Past Medical History Surgeries: Yes Hysterectomy, Tubal Ligation Respiratory: No Cardiac: Yes Hypertension Neurological: No Neuropathy Female Reproductive Disorders: Endometriosis 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 Genitourinary: No Gastrointestinal: No Irritable Bowel Musculoskeletal: Yes (TMJ arthralgia) Arthritis, Fibromyalgia Endocrine: No HEENT: No Hearing Impairment: Bilateral Hearing Aide Cancer: No Psychosocial: Yes Anxiety, PTSD, Bipolar, Depression Integumentary: Yes (dermatitis) Blood Disorders: No Physical Exam Vital Signs Vital Signs - First Documented 10/04/18 13:51 Temp 96.8 Pulse 69 Resp 18 B/P (MAP) 119/71 (87) Pulse Ox 95 O2 Delivery Room Air Capillary Refill : Less Than 3 Seconds General Appearance: no apparent distress HEENT: normal ENT inspection Neck: supple Cardiovascular: normal peripheral pulses, regular rate, rhythm Respiratory: lungs clear Gastrointestinal: non tender, soft Neurologic/Psychiatric: alert; No abnormal gait Skin: warm/dry, other (exam is performed with Janneth BUCIO as factory engineer: There is slightly scaly and raised appearance of the skin symmetrically below the breasts , below the abdominal pannus, and somewhat on the labia majora) Progress/Results/Core Measures Results/Orders Vital Signs/I&O 10/04/18 13:51 Temp 96.8 Pulse 69 Resp 18 B/P (MAP) 119/71 (87) Pulse Ox 95 O2 Delivery Room Air Blood Pressure Mean: 87 Progress Progress Note : Progress Note Patient apparently only tried a brief course of a topical antifungal. I will prescribe a longer course. She does have a primary care physician with whom she can follow-up. She will continue Benadryl. Departure Impression Primary Impression: Tinea cruris Disposition: 01 HOME, SELF-CARE Condition: Stable Departure-Patient Inst. Referrals: JENNIFER SANTANA MD (PCP/Family) Primary Care Physician Patient Instructions: Ringworm Scripts Ketoconazole (Ketoconazole) 15 Gm Cream..g. 15 GM TP BID for 28 Days, #1 TUBE 1 Refill Prov: ELIZABETH PAIZ DO 10/04/18 ELIZABETH PAIZ DO Oct 04, 2018 14:03
[2018-10-04] MEDS ORDERED: KETO15CR2 TP (14:29)
[2018-10-04 14:36] VITALS: BP 108/67
== END 2018-10-04 14:36 | disposition home or self-care (01) ==
LOC: EDUNIT# 13:38 → ER FS 13:40
DX: B35.6 Tinea cruris (principal); I10 Essential (primary) hypertension; G62.9 Polyneuropathy, unspecified; K58.9 Irritable bowel syndrome, unspecified; M79.7 Fibromyalgia; F41.9 Anxiety disorder, unspecified; F43.10 Post-traumatic stress disorder, unspecified; F31.9 Bipolar disorder, unspecified; F17.210 Nicotine dependence, cigarettes, uncomplicated; Z90.710 Acquired absence of both cervix and uterus; Z98.51 Tubal ligation status; Z87.448 Personal history of other diseases of urinary system; Z88.0 Allergy status to penicillin; Z88.2 Allergy status to sulfonamides; Z91.048 Other nonmedicinal substance allergy status; Z88.1 Allergy status to other antibiotic agents; Z91.041 Radiographic dye allergy status; Z88.8 Allergy status to other drugs, medicaments and biological substances
CPT/HCPCS: 99284

== ENCOUNTER 2019-02-05 21:23 | Emergency (ER) | payer MEDICAID ==
[~2019-02-05] VITALS: Ht 157.5 cm; Wt 83.0 kg
[~2019-02-05 21:23] MED LIST changes: +KETO15CR2 TP; -TIZA4TAB3 PO; +TIZA4TAB4 PO
--- NOTE | 2019-02-05 21:48 | ED Lower Extremity ---
General Chief Complaint: Lower Extremity Stated Complaint: LT ANKLE INJ Nursing Triage Note: Patient reports L ankle pain after tripping out of a car at 1700. Patient denies other injury. Nursing Sepsis Screen: No Definite Risk Source: patient Exam Limitations: no limitations History of Present Illness Date Seen by Provider: Feb 05, 2019 Time Seen by Provider: 21:47 Initial Comments twisted my ankles when I was getting out of my car. Did not fall. Couple hours prior to arrival. no swelling or bruising. able to bear weight Onset: just prior to arrival Allergies and Home Medications Allergies Coded Allergies: Penicillins (Unverified Allergy, Unknown, 09/08/18) Sulfa (Sulfonamide Antibiotics) (Verified Allergy, Unknown, rash, 10/04/18) itching adhesive tape (Verified Allergy, Unknown, hives, 10/04/18) rash amitriptyline (Verified Allergy, Unknown, unknown, 10/04/18) bacitracin (Verified Allergy, Unknown, rash, 10/04/18) hives erythromycin base (Verified Allergy, Unknown, rash, 10/04/18) ibuprofen (Unverified Allergy, Unknown, 09/08/18) metronidazole (Verified Allergy, Unknown, hives, 10/04/18) hives/rash neomycin (Verified Allergy, Unknown, rash, 10/04/18) itching polymyxin B (Verified Allergy, Unknown, rash, 10/04/18) hives prednisolone (Verified Allergy, Unknown, rash, 10/04/18) prednisone (Verified Allergy, Unknown, rash, 10/04/18) Home Medications Gabapentin 300 Mg Capsule, 300 MG PO TID, (Reported) Hydrocodone/Acetaminophen 1 Each Tablet, 325 MG PO TID PRN for PAIN-MODERATE TO SEVERE, (Reported) Ketoconazole 15 Gm Cream..g., 15 GM TP BID Prescribed by: ELIZABETH PAIZ on 10/04/18 1429 Metoprolol Tartrate 50 Mg Tablet, 50 MG PO BID, (Reported) Quetiapine Fumarate 300 Mg Tab.er.24h, 300 MG PO DAILY, (Reported) Tizanidine HCl 4 Mg Tablet, 4 MG PO Q8H PRN for BACK PAIN, (Reported) Venlafaxine HCl 150 Mg Cap.er.24h, 150 MG PO DAILY, (Reported) Ziprasidone HCl 20 Mg Capsule, 20 MG PO DAILY, (Reported) Patient Home Medication List Home Medication List Reviewed: Yes Review of Systems Constitutional: no symptoms reported, see HPI Musculoskeletal: see HPI; No back pain; joint pain; No joint swelling; muscle pain, other (pain both ankles and both legs to knees) Past Jwzbgzy-Xiowkm-Lxters Hx Past Med/Social Hx: Reviewed Nursing Past Med/Soc Hx Patient Social History Alcohol Use: Denies Use Number of Drinks Today: AA Alcohol Beverage of Choice: Beer Recreational Drug Use: No Smoking Status: Current Everyday Smoker Type Used: Cigarettes 2nd Hand Smoke Exposure: Yes Recent Foreign Travel: No Contact w/Someone Who Travel: No Recent Infectious Disease Expo: No Recent Hopitalizations: No Physical Abuse: No Sexual Abuse: No Mistreated: No Fear: No Seasonal Allergies Seasonal Allergies: No Past Medical History Surgeries: Yes Hysterectomy, Tubal Ligation Respiratory: No Cardiac: Yes High Cholesterol, Hypertension Neurological: No Neuropathy 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 0oz. 83.576782jj; BMI Method:Stated General Appearance: WD/WN, no apparent distress Legs: bilateral leg non-tender, bilateral leg normal inspection, bilateral leg normal range of motion, bilateral leg no evidence of injury, bilateral leg bone tenderness, bilateral leg deformity, bilateral leg ecchymosis, bilateral leg joint effusion Knees: bilateral knee non-tender, bilateral knee normal inspection, bilateral knee normal range of motion, bilateral knee no evidence of injury Ankles: bilateral ankle non-tender, bilateral ankle normal inspection, bilateral ankle normal range of motion, bilateral ankle no evidence of injury Feet: bilateral foot non-tender, bilateral foot normal inspection, bilateral foot normal range of motion, bilateral foot no evidence of injury Neurologic/Tendon: normal sensation, normal motor functions, no evidence tendon injury; No motor deficit, No sensory deficit Skin: normal color, warm/dry; No ecchymosis Progress/Results/Core Measures Results/Orders Vital Signs/I&O 02/05/19 02/05/19 21:33 21:55 Temp 98.9 98.9 Pulse 100 100 Resp 18 18 B/P (MAP) 160/88 (112) 160/88 (112) Pulse Ox 96 96 Blood Pressure Mean: 112 Progress Progress Note : Progress Note benign exam with no concern of bony injury. Reassurance given......symptomatic care for ankle sprain given. Departure Impression Primary Impression: Sprain and strain of ankle Disposition: HOME, SELF-CARE Condition: Stable Departure-Patient Inst. Decision time for Depature: 21:48 Referrals: JENNIFER SANTANA MD (PCP/Family) Primary Care Physician see PCP in 2 days (as previously scheduled) NIA SAXENA DO Feb 05, 2019 21:48
[2019-02-05 21:55] VITALS: BP 160/88
== END 2019-02-05 21:55 | disposition home or self-care (01) ==
LOC: EDUNIT# 21:23 → ER FS 21:25
DX: S93.402A Sprain of unspecified ligament of left ankle, initial encounter (principal); I10 Essential (primary) hypertension; E78.00 Pure hypercholesterolemia, unspecified; G62.9 Polyneuropathy, unspecified; K58.9 Irritable bowel syndrome, unspecified; M79.7 Fibromyalgia; F31.9 Bipolar disorder, unspecified; F43.10 Post-traumatic stress disorder, unspecified; F17.210 Nicotine dependence, cigarettes, uncomplicated; Z98.51 Tubal ligation status; Z90.710 Acquired absence of both cervix and uterus; Z88.0 Allergy status to penicillin; Z88.2 Allergy status to sulfonamides; Z88.1 Allergy status to other antibiotic agents; Z88.5 Allergy status to narcotic agent; Z88.8 Allergy status to other drugs, medicaments and biological substances; W01.0XXA Fall on same level from slipping, tripping and stumbling without subsequent striking against object, initial encounter
CPT/HCPCS: 99283

== ENCOUNTER 2019-04-01 13:32 | Emergency (ER) | payer MEDICAID ==
[~2019-04-01] VITALS: Ht 158 cm; Wt 83.5 kg
--- NOTE | 2019-04-01 13:38 | ED General ---
General Chief Complaint: Respiratory Problems Stated Complaint: SOB; CHEST CONGESTION History of Present Illness Date Seen by Provider: Apr 01, 2019 Time Seen by Provider: 13:38 Initial Comments Patient presenting to emergency department for evaluation of cough and shortness of breath has been worsening over the past 3-4 days to the point she cannot catch her breath when she is ambulating. She says the cough is mostly clear and that she has a sharp chest pain whenever she coughs she has no chest pain in between coughs. No exertional chest pain or leg swelling recent travel or immobility or estrogen use. She says she has no heart disease such as congestive heart failure or coronary ischemia. She does have high blood pressure and thinks that she did not take her medications this morning. She does smoke cigarettes and continues to do so. She says she has had some chills and sweats but no measured fevers. She has had the flu shot this year. She appears to be in mild respiratory distress but nontoxic. Allergies and Home Medications Allergies Coded Allergies: Penicillins (Unverified Allergy, Unknown, 09/08/18) Sulfa (Sulfonamide Antibiotics) (Verified Allergy, Unknown, rash, 10/04/18) itching adhesive tape (Verified Allergy, Unknown, hives, 10/04/18) rash amitriptyline (Verified Allergy, Unknown, unknown, 10/04/18) bacitracin (Verified Allergy, Unknown, rash, 10/04/18) hives erythromycin base (Verified Allergy, Unknown, rash, 10/04/18) ibuprofen (Unverified Allergy, Unknown, 09/08/18) metronidazole (Verified Allergy, Unknown, hives, 10/04/18) hives/rash neomycin (Verified Allergy, Unknown, rash, 10/04/18) itching polymyxin B (Verified Allergy, Unknown, rash, 10/04/18) hives prednisolone (Verified Allergy, Unknown, rash, 10/04/18) prednisone (Verified Allergy, Unknown, rash, 10/04/18) Home Medications Cyclobenzaprine HCl 10 Mg Tablet, 10 MG PO DAILY, (Reported) Gabapentin 300 Mg Capsule, 300 MG PO TID, (Reported) Hydrocodone/Acetaminophen 1 Each Tablet, 325 MG PO TID PRN for PAIN-MODERATE TO SEVERE, (Reported) Metoprolol Tartrate 50 Mg Tablet, 50 MG PO BID, (Reported) Quetiapine Fumarate 300 Mg Tab.er.24h, 300 MG PO DAILY, (Reported) Tizanidine HCl 4 Mg Tablet, 4 MG PO Q8H PRN for BACK PAIN, (Reported) Venlafaxine HCl 150 Mg Cap.er.24h, 150 MG PO DAILY, (Reported) Ziprasidone HCl 20 Mg Capsule, 20 MG PO DAILY, (Reported) Patient Home Medication List Home Medication List Reviewed: Yes Review of Systems Review of Systems Constitutional: chills, diaphoresis; No fever EENTM: nose congestion Respiratory: cough, dyspnea on exertion; No hemoptysis; phlegm Cardiovascular: chest pain (on cough) Genitourinary: no symptoms reported Musculoskeletal: no symptoms reported Skin: no symptoms reported Psychiatric/Neurological: No Symptoms Reported Past Lhcrfur-Crhhun-Sozyuw Hx Patient Social History Alcohol Beverage of Choice: Beer Type Used: Cigarettes 2nd Hand Smoke Exposure: Yes Recent Foreign Travel: No Recent Hopitalizations: No Physical Abuse: No Sexual Abuse: No Mistreated: No Fear: No Seasonal Allergies Seasonal Allergies: No Past Medical History Surgeries: Yes Hysterectomy, Tubal Ligation Respiratory: No Cardiac: Yes High Cholesterol, Hypertension Neurological: No Neuropathy 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 0oz. 83.283464qm; BMI Method:Stated General Appearance: No Apparent Distress, Mild Distress (respiratory) HEENT: PERRL/EOMI Neck: Supple Respiratory: Decreased Breath Sounds, Expiration, Inspiration, Rhonci, Wheezing Cardiovascular: No Edema, Tachycardia Gastrointestinal: Normal Bowel Sounds Back: Normal Inspection Extremity: Normal Capillary Refill Neurologic/Psychiatric: Alert, Oriented x3 Progress/Results/Core Measures Suspected Sepsis SIRS Temperature: Pulse: Respiratory Rate: Blood Pressure / Mean: Results/Orders My Orders Orders - BRIGID LUTHER DO Chest Pa/Lat (2 View) (04/01/19 13:48) Albuterol/Ipra Inhalation Soln (Duoneb I (04/01/19 14:00) Prednisone Tablet (Deltasone Tablet) (04/01/19 14:00) Hydrocodone/Apap 5/325 Tablet (Lortab 5 (04/01/19 14:00) Svn Small Volume Nebulizer (04/01/19 13:48) Dexamethasone Injection (Decadron Inject (04/01/19 14:15) Albuterol Pre-Mix Nebs (Rt) (Proventil (04/01/19 14:30) Svn Small Volume Nebulizer (04/01/19 14:18) Medications Given in ED Current Medications Medications Dose Ordered Sig/Katarzyna Route Start Time Stop Time Status Last Admin Dose Admin Acetaminophen/ Hydrocodone Bitart 1 tab ONCE ONCE PO 04/01/19 14:00 04/01/19 14:01 DC 04/01/19 14:03 1 TAB Albuterol/ Ipratropium 3 ml ONCE ONCE INH 04/01/19 14:00 04/01/19 14:01 DC 04/01/19 14:03 3 ML Dexamethasone Sodium Phosphate 10 mg ONCE ONCE PO 04/01/19 14:15 04/01/19 14:16 DC 04/01/19 14:13 10 MG Vital Signs/I&O Capillary Refill : Progress Note : Progress Note Patient's breath sounds were diminished initially and I gave her a DuoNeb which improved aeration and the wheezing improved as well. Patient says she is allergic to prednisone but she can take other steroid such as Decadron or cortisone as she gets these injected sometimes into her joints. Patient feels much better after breathing treatments and her oxygen saturation stayed in the mid 90s. Her x-ray does not show an obvious pneumonia but her breath sounds are quite abnormal site do want to treat her with Zithromax. Patient told to use albuterol every 4 hours and I will write her Phenergan with codeine for cough suppression. She was told to follow primary care provider within 2-3 days and come back to the emergency Department sooner with worsening pain shortness of breath or other general concerns. Patient aware and agreeable with plan for discharge and verbalized understanding of the above instructions. Departure Impression Primary Impression: Bronchitis Additional Impression: Wheezing Disposition: 01 HOME, SELF-CARE Condition: Stable Departure-Patient Inst. Referrals: JENNIFER SANTANA MD (PCP/Family) Primary Care Physician Patient Instructions: Acute Bronchitis, Adult (DC) Add. Discharge Instructions: All discharge instructions reviewed with patient and/or family. Voiced understanding. Stop smoking. Use the albuterol every 4 hours. Follow with PCP on Thursday and come back sooner with any new or worsening pain, soa, or other general concerns. Do not take your norco within 6 hours of phenergan with codeine. Scripts Azithromycin (Zithromax) 250 Mg Tablet 250 MG PO UD, #6 TAB TAKE 2 TABLETS TODAY, THEN TAKE 1 TABLET DAILY FOR 4 MORE DAYS Prov: BRIGID LUTHER DO 04/01/19 Promethazine HCl/Codeine (Prometh-Codein 6.25-10 mg/5 ml) 5 Ml Syrup 5 ML PO Q6H PRN for cough, #50 ML Prov: BRIGID LUTHER DO 04/01/19 Albuterol Sulfate (PROAIR HFA) 1 Puff Puff 2 PUFF IH Q4H, #1 INHALER 1 PUFF = 90 MCG Prov: BRIGID LUTHER DO 04/01/19 BRIGID LUTHER DO Apr 01, 2019 13:38
[2019-04-01] MEDS ORDERED: LATA2.5D5 (13:51)
[2019-04-01] MEDS ORDERED: CYCL1DRO (13:51)
[2019-04-01] MEDS ORDERED: CYCL10TA9 PO (13:51)
[2019-04-01] MEDS ORDERED: ATOR20TA66 (13:51)
[2019-04-01] MEDS ORDERED: HYDROcodone/APAP 5 MG/325 MG (LORTAB) TAB PO ONE (14:00)
[2019-04-01] MEDS ORDERED: predniSONE 20 MG TAB PO ONE (14:00)
[2019-04-01] MEDS ORDERED: RT-ALBUTEROL/IPRATROPIUM 3 ML (DUONEB) VIAL INH ONE (14:00)
--- NOTE | 2019-04-01 14:08 | Diagnostic Imaging Report ---
Indication: Shortness of breath PA and lateral chest Heart size and pulmonary vascularity are normal. Lungs are clear. There are no effusions or pneumothoraces. IMPRESSION: Negative chest Dictated by: Dictated on workstation # [id number]
[2019-04-01] MEDS ORDERED: DEXAMETHASONE 10 MG/ML (DECADRON) 1 ML VIAL PO ONE (14:15)
[2019-04-01] MEDS ORDERED: AZIT250T PO (14:28)
[2019-04-01] MEDS ORDERED: RT-ALBUINH IH (14:28)
[2019-04-01] MEDS ORDERED: PROM5SYR PO (14:28)
[2019-04-01] MEDS ORDERED: RT-ALBUTEROL SULF 2.5 MG/3 ML PRE-MIX VIAL INH ONE (14:30)
[2019-04-01 14:50] VITALS: BP 140/84
--- OUTSIDE RECORDS SUMMARY | 2019-04-25 02:15 | XMS REPORT | Continuity of Care Document ---
Author Organization Unknown POS Address Unknown SP Phone Unavailable SP Allergies Active Description Code Type Severity POS Reaction Onset Reported/Identified POS to Patient Clinical Status POS Yes ibuprofen [id number] Drug Allergy SP N/A 09/08/2018 SP Yes Penicillins [id number] Drug Aller gy SP N/A 09/08/2018 SP Yes adhesive tape [id number] Heladio g Allergy SP Unknown hives 10/04/2018 SP SP Yes amitriptyline [id number] Heladio g Allergy SP Unknown unknown 10/04/2018 SP SP Yes bacitracin [id number] Drug Allerg y SP rash 10/04/2018 SP Yes erythromycin base [id number] Drug Allergy SP Unknown rash 10/04/2018 SP SP Yes metronidazole [id number] Heladio g Allergy SP Unknown hives 10/04/2018 SP SP Yes neomycin [id number] Drug Allergy SP rash 10/04/2018 SP Yes polymyxin B [id number] Drug Aller gy SP rash 10/04/2018 SP Yes prednisolone [id number] Drug Allergy SP Unknown rash 10/04/2018 SP Yes prednisone [id number] Drug Allerg y SP rash 10/04/2018 SP Yes Sulfa (Sulfonamide Antibiotics) [id number] SP Allergy Unknown rash 9 SP SP Medications There is no data. Problems Date Dx Coded Attending Type Code POS Diagnosed By POS 09/08/2018 MARIBELL SUNG Ot F17.210 SP DEPENDENCE, CIGARETTES, UNCOMPL SP 09/08/2018 MARIBELL SUNG Ot K58.9 SP BOWEL SYNDROME WITHOUT DIARRHE SP 09/08/2018 MARIBELL SUNG Ot M19.90 SP OSTEOARTHRITIS, UNSPECIFIED SP 09/08/2018 MARIBELL SUNG Ot M79.89 SP SPECIFIED SOFT TISSUE DISORDERS SP 09/08/2018 MARIBELL SUNG Ot R60.0 SP EDEMA SP 09/08/2018 MARIBELL SUNG Ot Z88.0 SP STATUS TO PENICILLIN SP 09/08/2018 BERNOT, MARIBELL Ot Z88.6 SP STATUS TO ANALGESIC AGENT STATUS SP 09/08/2018 PINEDA MARIBELL Ot Z90.710 SP ABSENCE OF BOTH CERVIX AND UTER SP 09/10/2018 PINEDA MARIBELL Ot F17.210 SP DEPENDENCE, CIGARETTES, UNCOMPL SP 09/10/2018 SHAMAR SUNGIS Ot K58.9 SP BOWEL SYNDROME WITHOUT DIARRHE SP 09/10/2018 PINEDA MARIBELL Ot M19.90 SP OSTEOARTHRITIS, UNSPECIFIED SP 09/10/2018 PINEDA MARIBELL Ot M79.89 SP SPECIFIED SOFT TISSUE DISORDERS SP 09/10/2018 SHAMAR SUNGIS Ot R60.0 SP EDEMA SP 09/10/2018 PINEDA MARIBELL Ot Z88.0 SP STATUS TO PENICILLIN SP 09/10/2018 SHAMAR SUNGIS Ot Z88.6 SP STATUS TO ANALGESIC AGENT STATUS SP 09/10/2018 SHAMAR SUNGIS Ot Z90.710 SP ABSENCE OF BOTH CERVIX AND UTER SP 10/04/2018 EDEN PAIZ DOED T Ot B35. 6 SP CRURIS SP 10/04/2018 CHENCHO TERAN ELIZABETH T Ot F17.210 SP NICOTINE DEPENDENCE, CIGARETTES, UNCOMPL SP 10/04/2018 CHENCHO TERAN ELIZABETH T Ot F31. 9 SP DISORDER, UNSPECIFIED SP 10/04/2018 CHENCHO TERAN ELIZABETH T Ot F41. 9 SP DISORDER, UNSPECIFIED SP 10/04/2018 CHENCHO TERAN ELIZABETH T Ot F43. 10 SPTRAUMATIC STRESS DISORDER, UNSPECIF SP 10/04/2018 EDEN PAIZ DOED T Ot G62. 9 SP UNSPECIFIED SP 10/04/2018 CHENCHO TERAN ELIZABETH T Ot I10 SP (PRIMARY) HYPERTENSION SP 10/04/2018 CHENCHO TERAN ELIZABETH T Ot K58. 9 SP BOWEL SYNDROME WITHOUT DIARRHE SP 10/04/2018 CHENCHO TERAN ELIZABETH T Ot L29. 9 SP UNSPECIFIED SP 10/04/2018 EDEN PAIZ DOED T Ot M79. 7 SP SP 10/04/2018 CHENCHO TERAN ELIZABETH T Ot Z87.448 SP PERSONAL HISTORY OF OTHER DISEASES OF UR SP 10/04/2018 EDEN PAIZ DOED T Ot Z88. 0 SP STATUS TO PENICILLIN SP 10/04/2018 EDEN PAIZ DOED T Ot Z88. 1 SP STATUS TO OTHER ANTIBIOTIC AGENT SP 10/04/2018 CHENCHO DO, ELIZABETH T Ot Z88. 2 SP STATUS TO SULFONAMIDES STATUS SP 10/04/2018 CHENCHO TERAN, ELIZABETH T Ot Z88. 8 SP STATUS TO OTH DRUG/MEDS/BIOL SUB SP 10/04/2018 CHENCHO , ELIZABETH T Ot Z90.710 SP ACQUIRED ABSENCE OF BOTH CERVIX AND UTER SP 10/04/2018 CHENCHO TERAN ELIZABETH T Ot Z91.041 SP RADIOGRAPHIC DYE ALLERGY STATUS SP 10/04/2018 CHENCHO , ELIZABETH T Ot Z91.048 SP OTHER NONMEDICINAL SUBSTANCE ALLERGY STA SP 10/04/2018 CHENCHO , ELIZABETH T Ot Z98. 51 SP LIGATION STATUS SP 10/07/2018 CHENCHO ELIZABETH T Ot B35. 6 SP CRURIS SP 10/07/2018 CHENCHO TERAN, ELIZABETH T Ot F17.210 SP NICOTINE DEPENDENCE, CIGARETTES, UNCOMPL SP 10/07/2018 CHENCHO TERAN ELIZABETH T Ot F31. 9 SP DISORDER, UNSPECIFIED SP 10/07/2018 CHENCHO TERAN ELIZABETH T Ot F41. 9 SP DISORDER, UNSPECIFIED SP 10/07/2018 CHENCHO , ELIZABETH T Ot F43. 10 SPTRAUMATIC STRESS DISORDER, UNSPECIF SP 10/07/2018 CHENCHO TERAN, ELIZABETH T Ot G62. 9 SP UNSPECIFIED SP 10/07/2018 CHENCHO TERAN, ELIZABETH T Ot I10 SP (PRIMARY) HYPERTENSION SP 10/07/2018 CHENCHO TERAN, ELIAZBETH T Ot K58. 9 SP BOWEL SYNDROME WITHOUT DIARRHE SP 10/07/2018 CHENCHO TERAN, ELIZABETH T Ot L29. 9 SP UNSPECIFIED SP 10/07/2018 CHENCHO TERAN ELIZABETH T Ot M79. 7 SP SP 10/07/2018 CHENCHO TERAN, ELIZABETH T Ot Z87.448 SP PERSONAL HISTORY OF OTHER DISEASES OF UR SP 10/07/2018 CHENCHO TERAN, ELIZABETH T Ot Z88. 0 SP STATUS TO PENICILLIN SP 10/07/2018 CHENCHO TERAN ELIZABETH T Ot Z88. 1 SP STATUS TO OTHER ANTIBIOTIC AGENT SP 10/07/2018 CHENCHO TERAN ELIZABETH T Ot Z88. 2 SP STATUS TO SULFONAMIDES STATUS SP 10/07/2018 CHENCHO TERAN ELIZABETH T Ot Z88. 8 SP STATUS TO OTH DRUG/MEDS/BIOL SUB SP 10/07/2018 CHENCHO TERAN ELIZABETH T Ot Z90.710 SP ACQUIRED ABSENCE OF BOTH CERVIX AND UTER SP 10/07/2018 [facility], ELIZABETH T Ot Z91.041 SP RADIOGRAPHIC DYE ALLERGY STATUS SP 10/07/2018 [facility], ELIZABETH T Ot Z91.048 SP OTHER NONMEDICINAL SUBSTANCE ALLERGY STA SP 10/07/2018 [facility], ELIZABETH T Ot Z98. 51 SP LIGATION STATUS SP 10/10/2018 [facility], ELIZABETH T Ot B35. 6 SP CRURIS SP 10/10/2018 [facility], ELIZABETH T Ot F17.210 SP NICOTINE DEPENDENCE, CIGARETTES, UNCOMPL SP 10/10/2018 [facility], ELIZABETH T Ot F31. 9 SP DISORDER, UNSPECIFIED SP 10/10/2018 [facility], ELIZABETH T Ot F41. 9 SP DISORDER, UNSPECIFIED SP 10/10/2018 [facility], ELIZABETH T Ot F43. 10 SPTRAUMATIC STRESS DISORDER, UNSPECIF SP 10/10/2018 [facility], ELIZABETH T Ot G62. 9 SP UNSPECIFIED SP 10/10/2018 [facility] ELIZABETH T Ot I10 SP (PRIMARY) HYPERTENSION SP 10/10/2018 [facility], ELIZABETH T Ot K58. 9 SP BOWEL SYNDROME WITHOUT DIARRHE SP 10/10/2018 [facility], ELIZABETH T Ot L29. 9 SP UNSPECIFIED SP 10/10/2018 [facility], ELIZABETH T Ot M79. 7 SP SP 10/10/2018 [facility], ELIZABETH T Ot Z87.448 SP PERSONAL HISTORY OF OTHER DISEASES OF UR SP 10/10/2018 [facility] , ELIZABETH T Ot Z88. 0 SP STATUS TO PENICILLIN SP 10/10/2018 CHENCHO TERAN ELIZABETH T Ot Z88. 1 SP STATUS TO OTHER ANTIBIOTIC AGENT SP 10/10/2018 [facility] ELIZABETH T Ot Z88. 2 SP STATUS TO SULFONAMIDES STATUS SP 10/10/2018 [facility], ELIZABETH T Ot Z88. 8 SP STATUS TO OTH DRUG/MEDS/BIOL SUB SP 10/10/2018 CHENCHO TERAN, ELIZABETH T Ot Z90.710 SP ACQUIRED ABSENCE OF BOTH CERVIX AND UTER SP 10/10/2018 CHENCHO TERAN, ELIZABETH T Ot Z91.041 SP RADIOGRAPHIC DYE ALLERGY STATUS SP 10/10/2018 [facility] ELIZABETH T Ot Z91.048 SP OTHER NONMEDICINAL SUBSTANCE ALLERGY STA SP 10/10/2018 CHENCHO TERAN, ELIZABETH T Ot Z98. 51 SP LIGATION STATUS SP 02/05/2019 ROVENSTINE DO, NIA Perrin Ot E78.00 SP PURE HYPERCHOLESTEROLEMIA, UNSPECIFIED SP 02/05/2019 ROVENSTINE DO, NIA Perrin Ot F17.210 SP NICOTINE DEPENDENCE, CIGARETTES, UNCOMPL SP 02/05/2019 ROVENSTINE DO, NIA Perrin Ot F31.9 SP BIPOLAR DISORDER, UNSPECIFIED SP 02/05/2019 ROVENSTINE DO, NIA Perrin Ot F43.10 SP POST-TRAUMATIC STRESS DISORDER, UNSPECIF SP 02/05/2019 ROVENSTINE DO, NIA Perrin Ot G62.9 SP POLYNEUROPATHY, UNSPECIFIED SP 02/05/2019 ROVENSTINE DO, NIA Perrin Ot I10 SP ESSENTIAL (PRIMARY) HYPERTENSION SP 02/05/2019 ROVENSTINE DO, NIA Perrin Ot K58.9 SP IRRITABLE BOWEL SYNDROME WITHOUT DIARRHE SP 02/05/2019 ROVENSTINE DO, NIA Perrin Ot M79.7 SP FIBROMYALGIA SP 02/05/2019 ROVENSTINE DO, NIA Perrin Ot S93.402A SP SPRAIN OF UNSPECIFIED LIGAMENT OF LEFT A SP 02/05/2019 ROVENSTINE DO, NIA Perrin Ot S99.912A SP UNSPECIFIED INJURY OF LEFT ANKLE, INITIA SP 02/05/2019 ROVENSTINE DO, NIA Perrin Ot W01.0XXA SP FALL SAME LEV FROM SLIP/TRIP W/O STRIKE SP 02/05/2019 ROVENSTINE DO, NIA Perrin Ot Z88.0 SP ALLERGY STATUS TO PENICILLIN SP 02/05/2019 ROVENSTINE DONIA Ot Z88.1 SP ALLERGY STATUS TO OTHER ANTIBIOTIC AGENT SP 02/05/2019 ROVENSTINE DONIA Ot Z88.2 SP ALLERGY STATUS TO SULFONAMIDES STATUS SP 02/05/2019 ROVENSTINE DO, NIA Perrin Ot Z88.5 SP ALLERGY STATUS TO NARCOTIC AGENT STATUS SP 02/05/2019 ROVENSTINE DO, NIA Perrin Ot Z88.8 SP ALLERGY STATUS TO OTH DRUG/MEDS/BIOL SUB SP 02/05/2019 ROVENSTINE DO, NIA Perrin Ot Z90.710 SP ACQUIRED ABSENCE OF BOTH CERVIX AND UTER SP 02/05/2019 ROVENSTINE DONIA Ot Z98.51 SP TUBAL LIGATION STATUS SP 02/09/2019 ROVENSTINE DO, NIA Perrin Ot E78.00 SP PURE HYPERCHOLESTEROLEMIA, UNSPECIFIED SP 02/09/2019 ROVENSTINE DO, NIA Perrin Ot F17.210 SP NICOTINE DEPENDENCE, CIGARETTES, UNCOMPL SP 02/09/2019 ROVENSTINE DO, NIA Perrin Ot F31.9 SP BIPOLAR DISORDER, UNSPECIFIED SP 02/09/2019 ROVENSTINE DO, NIA Perrin Ot F43.10 SP POST-TRAUMATIC STRESS DISORDER, UNSPECIF SP 02/09/2019 ROVENSTINE DO, NIA Perrin Ot G62.9 SP POLYNEUROPATHY, UNSPECIFIED SP 02/09/2019 ROVENSTINE DO, NIA Perrin Ot I10 SP ESSENTIAL (PRIMARY) HYPERTENSION SP 02/09/2019 ROVENSTINE DONIA Ot K58.9 SP IRRITABLE BOWEL SYNDROME WITHOUT DIARRHE SP 02/09/2019 ROVENSTINE DO, NIA Perrin Ot M79.7 SP FIBROMYALGIA SP 02/09/2019 ROVENSTINE DO, NIA Perrin Ot S93.402A SP SPRAIN OF UNSPECIFIED LIGAMENT OF LEFT A SP 02/09/2019 ROVENSTINE DONIA Ot S99.912A SP UNSPECIFIED INJURY OF LEFT ANKLE, INITIA SP 02/09/2019 ROVENSTINE DO, NIA Perrin Ot W01.0XXA SP FALL SAME LEV FROM SLIP/TRIP W/O STRIKE SP 02/09/2019 ROVENSTINE DO, NIA Perrin Ot Z88.0 SP ALLERGY STATUS TO PENICILLIN SP 02/09/2019 ROVENSTINE DONIA Ot Z88.1 SP ALLERGY STATUS TO OTHER ANTIBIOTIC AGENT SP 02/09/2019 ROVENSTINE DONIA Ot Z88.2 SP ALLERGY STATUS TO SULFONAMIDES STATUS SP 02/09/2019 ROVENSTINE DONIA Ot Z88.5 SP ALLERGY STATUS TO NARCOTIC AGENT STATUS SP 02/09/2019 ROVENSTINE DONIA Ot Z88.8 SP ALLERGY STATUS TO OTH DRUG/MEDS/BIOL SUB SP 02/09/2019 ROVENSTINE DONIA Ot Z90.710 SP ACQUIRED ABSENCE OF BOTH CERVIX AND UTER SP 02/09/2019 ROVENSTINE DONIA Ot Z98.51 SP TUBAL LIGATION STATUS SP Procedures There is no data. Results Test Result Range POS Complete blood count (CBC) with automate d white blood cell (WBC) differential - POS 18:20 Blood leukocytes automated count (number/volume) 5.2 10*3/uL POS 4.3-11.0 SP Blood erythrocytes automated count (number/volume) 4.39 10*6/uL SP 4.35-5.85 SP Venous blood hemoglobin measurement (mass/volume) 11.4 g/dL SP16.0 Blood hematocrit (volume fraction) 37 % 35-52 SP Automated erythrocyte mean corpuscular volume 84 [ foz_us] SP99 Automated erythrocyte mean corpuscular h emoglobin (mass per erythrocyte) SP 26 pg 25-34 SP Automated erythrocyte mean corpuscular h emoglobin concentration measurement SP 31 g/dL 32-36 SP Automated erythrocyte distribution width ratio 16. 1 % 10.0- SP Automated blood platelet count (count/volume) 242 10*3/uL SP400 Automated blood platelet mean volume measurement 9.8 [foz_us] SP 7.4-10.4 SP Automated blood neutrophils/100 leukocytes 46 % 42-75 SP Automated blood lymphocytes/100 leukocytes 40 % 12-44 SP Blood monocytes/100 leukocytes 10 % 0-12 SP Automated blood eosinophils/100 leukocytes 3 % 0-10 SP Automated blood basophils/100 leukocytes 0 % 0-10 SP Blood neutrophils automated count (number/volume) 2.4 10*3 SP7.8 Blood lymphocytes automated count (number/volume) 2.1 10*3 SP4.0 Blood monocytes automated count (number/volume) 0. 5 10*3 SP1.0 Automated eosinophil count 0.1 10*3/uL 0 .0-0.3 SP Automated blood basophil count (count/volume) 0.0 10*3/uL SP0.1 Erythrocyte sedimentation rate by zee gren method - 09/08/18 18:20 POS Erythrocyte sedimentation rate by westergren method 9 mm 0- SP Comprehensive metabolic panel - 09/08/18 18:20 POS Serum or plasma sodium measurement (moles/volume) 141 mmol/L SP 135-145 SP Serum or plasma potassium measurement (moles/volume) 4.2 mmol/L SP 3.6-5.0 SP Serum or plasma chloride measurement (moles/volume) 103 mmol/L SP 98-107 SP Carbon dioxide 27 mmol/L 21-32 SP Serum or plasma anion gap determination (moles/volume) 11 mmol/L SP 5-14 SP Serum or plasma urea nitrogen measurement (mass/volume ) 9 mg/dL SP 7-18 SP Serum or plasma creatinine measurement (mass/volume) 0.78 mg/dL SP 0.60-1.30 SP Serum or plasma urea nitrogen/creatinine mass ratio 12 NRG SP Serum or plasma creatinine measurement w ith calculation of estimated glomerular SP rate > NRG SP Serum or plasma glucose measurement (mass/volume) 102 mg/dL SP105 Serum or plasma calcium measurement (mass/volume) 9.6 mg/dL SP10.1 Serum or plasma total bilirubin measurement (mass/volu me) 0.2 mg/dL SP 0.1-1.0 SP Serum or plasma alkaline phosphatase morgan surement (enzymatic activity/volume) SP 50 U/L 40-136 SP Serum or plasma aspartate aminotransfera se measurement (enzymatic SP 31 U/L 5-34 SP Serum or plasma alanine aminotransferase measurement (enzymatic activity/volume) SP 34 U/L 0-55 SP Serum or plasma protein measurement (mass/volume) 7.2 g/dL SP8.2 Serum or plasma albumin measurement (mass/volume) 4.2 g/dL SP4.5 CALCIUM CORRECTED 9.4 mg/dL 8.5-10.1 SP Serum or plasma uric acid measurement (m ass/volume) - 09/08/18 18:20 POS Serum or plasma uric acid measurement (mass/volume) 5.9 mg/dL SP 2.6-7.2 SP Serum or plasma C reactive protein measu rement (mass/volume) - 09/08/18 18:20 POS Serum or plasma C reactive protein measurement (mass/v olume) 0.49 POS 0.00-0.50 SP Serum or plasma lithium measurement (mol es/volume) - 09/08/18 18:20 POS BNP level 15.1 pg/mL <100.0 SP TSH w/ FREE T4 - 09/22/18 11:11 POS TSH 1.24 mIU/L NRG SP T4, FREE 0.8 ng/dL 0.8-1.8 SP CMP - 09/22/18 11:11 POS GLUCOSE 82 mg/dL 65-99 SP UREA NITROGEN (BUN) 11 mg/dL 7-25 SP CREATININE 0.69 mg/dL 0.50-1.10 SP eGFR NON-AFR. SERBIAN 104 mL/min/1.73m2 > OR=60 SP eGFR 120 mL/min/1.73m2 > OR=60 SP BUN/CREATININE RATIO NOT APPLICABLE (calc) 6-22 SP SODIUM 138 mmol/L 135-146 SP POTASSIUM 4.2 mmol/L 3.5-5.3 SP CHLORIDE 100 mmol/L 98-110 SP CARBON DIOXIDE 27 mmol/L 20-32 SP CALCIUM 9.9 mg/dL 8.6-10.2 SP PROTEIN, TOTAL 7.4 g/dL 6.1-8.1 SP ALBUMIN 4.5 g/dL 3.6-5.1 SP GLOBULIN 2.9 g/dL (calc) 1.9-3.7 SP ALBUMIN/GLOBULIN RATIO 1.6 (calc) 1.0-2. 5 SP BILIRUBIN, TOTAL 0.3 mg/dL 0.2-1.2 SP ALKALINE PHOSPHATASE 49 U/L 33-115 SP AST 24 U/L 10-35 SP ALT 23 U/L 6-29 SP CBC - 09/22/18 11:11 POS WHITE BLOOD CELL COUNT 3.8 Thousand/uL 3 .8-10.8 SP RED BLOOD CELL COUNT 4.89 Million/uL 3.8 0-5.10 SP HEMOGLOBIN 12.7 g/dL 11.7-15.5 SP HEMATOCRIT 40.0 % 35.0-45.0 SP MCV 81.8 fL 80.0-100.0 SP MCH 26.0 pg 27.0-33.0 SP MCHC 31.8 g/dL 32.0-36.0 SP RDW 15.3 % 11.0-15.0 SP PLATELET COUNT 281 Thousand/uL 140-400 SP MPV 9.2 fL 7.5-12.5 SP ABSOLUTE NEUTROPHILS 1752 cells/uL 1500- 7800 SP ABSOLUTE LYMPHOCYTES 1547 cells/uL 850-3 900 SP ABSOLUTE MONOCYTES 384 cells/uL 200-950 SP ABSOLUTE EOSINOPHILS 99 cells/uL 15-500 SP ABSOLUTE BASOPHILS 19 cells/uL 0-200 SP NEUTROPHILS 46.1 % NRG SP LYMPHOCYTES 40.7 % NRG SP MONOCYTES 10.1 % NRG SP EOSINOPHILS 2.6 % NRG SP BASOPHILS 0.5 % NRG SP Encounters ACCT No. Visit Date/Time Discharge Status POS Pt. Type Provider Facility Loc./Un it POS Complaint POS [id number] 09/22/2018 10:40:00 09/22/2018 23:59: 59 CLS SP Outpatient JENNIFER SANTANA [facility] SP [id number] 09/22/2018 10:40:00 Document SPRegistration SP [id number] 04/01/2019 13:33:00 14:50:00 SP DIS Emergency BRIGID LUTHER DO [facility] ER FS SOB; CHEST CONGESTION SP [id number] 02/05/2019 21:25:00 21:55:00 SP DIS Emergency ROVENSTNIA BUCKLEY DO [facility] ER FS LT ANKLE INJ SP [id number] 10/04/2018 13:40:00 14:36:00 SP DIS Emergency ELIZABETH PAIZ DO [facility] ER FS RASH SP [id number] 09/08/2018 18:09:00 19:38:00 SP DIS Emergency MARIBELL SUNG [facility] ER FLUID RETENTION SP
== END 2019-04-01 14:50 | disposition home or self-care (01) ==
LOC: EDUNIT# 13:32 → ER FS 13:33
DX: J40 Bronchitis, not specified as acute or chronic (principal); R06.2 Wheezing; I10 Essential (primary) hypertension; E78.00 Pure hypercholesterolemia, unspecified; G62.9 Polyneuropathy, unspecified; K58.9 Irritable bowel syndrome, unspecified; M79.7 Fibromyalgia; F31.9 Bipolar disorder, unspecified; F43.10 Post-traumatic stress disorder, unspecified; F41.9 Anxiety disorder, unspecified; F17.210 Nicotine dependence, cigarettes, uncomplicated; Z88.0 Allergy status to penicillin; Z88.2 Allergy status to sulfonamides; Z88.8 Allergy status to other drugs, medicaments and biological substances; Z88.1 Allergy status to other antibiotic agents; Z88.5 Allergy status to narcotic agent; Z90.710 Acquired absence of both cervix and uterus; Z98.51 Tubal ligation status
CPT/HCPCS: 71046; 94640

== ENCOUNTER 2019-05-12 16:09 | Emergency (ER) | payer MEDICAID ==
[~2019-05-12] VITALS: Ht 170 cm; Wt 83.5 kg
[~2019-05-12 16:09] MED LIST changes: +ATOR20TA66; +AZIT250T PO; +CYCL10TA9 PO; +CYCL1DRO; +LATA2.5D5; +PROM5SYR PO; +RT-ALBUINH IH
[2019-05-12] MEDS ORDERED: morphine INJ 10 MG/ML 1ML (SYR OR VIAL) IM STA (16:22)
[2019-05-12] MEDS ORDERED: CYCLOBENZAPRINE 10 MG (FLEXERIL) TAB PO SCH (16:30)
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
[2019-05-12 18:54] VITALS: BP 134/78
== END 2019-05-12 18:55 | disposition home or self-care (01) ==
LOC: EDUNIT# 16:09 → ER FS 16:11
DX: M54.5 Low back pain (principal); M54.2 Cervicalgia; G62.9 Polyneuropathy, unspecified; K58.9 Irritable bowel syndrome, unspecified; F41.9 Anxiety disorder, unspecified; F43.10 Post-traumatic stress disorder, unspecified; F31.9 Bipolar disorder, unspecified; Z98.51 Tubal ligation status; Z90.710 Acquired absence of both cervix and uterus; Z88.0 Allergy status to penicillin; Z88.2 Allergy status to sulfonamides; Z88.1 Allergy status to other antibiotic agents; Z88.8 Allergy status to other drugs, medicaments and biological substances; Z88.5 Allergy status to narcotic agent; Z77.22 Contact with and (suspected) exposure to environmental tobacco smoke (acute) (chronic); V49.59XA Passenger injured in collision with other motor vehicles in traffic accident, initial encounter
CPT/HCPCS: 72072; 72100; 72125; 96372

== ENCOUNTER → 2019-06-24 | Outpatient (CLI) | payer MEDICAID, OTHER ==
--- NOTE | 2019-06-24 13:10 | Diagnostic Imaging Report ---
PROCEDURE: MRI lumbar spine. TECHNIQUE: Multiplanar, multisequence MRI of the lumbar spine was performed without contrast. INDICATION: Acute midline low back pain. COMPARISON: No prior MRI studies are available for comparison. Curvature and alignment of the lumbar spine are normal. Vertebral body heights are maintained. The marrow signal intensity is unremarkable. No compression fracture or geographic marrow lesion is detected. There is some loss of height and signal intensity involving the L4-L5 disc compatible with degenerative disc disease. Remaining lumbar discs show normal height and hydration. Conus is unremarkable at the L2 level. T12-L1: The central canal and neural foramina are widely patent. L1-T2: The central canal and neural foramina are widely patent. L2-L3: The central canal and neural foramina are widely patent. L3-L4: There is some ligamentous thickening but central canal is widely patent. The neural foramina are widely patent. L4-L5: There is ligamentous thickening and broad-based disc/osteophyte complex flattening of the ventral thecal sac. Central canal remains patent. There is narrowing of the left lateral recess. Hypertrophic facet changes are noted, greater on the left. There is significant left neural foraminal stenosis as well. Right neural foramen is patent. L5-S1: Central canal is widely patent. Neural foramina are patent. Paraspinous tissues are unremarkable. IMPRESSION: L4-L5 degenerative disc disease with left-sided lateral recess and neural foraminal stenosis. No central canal stenosis is identified. No compression fracture is seen. Dictated by: Dictated on workstation # [id number]
== END ==
LOC: RAD 12:13
PROVIDERS: ATTEND Nurse Practitioner Family
DX: M51.36 Other intervertebral disc degeneration, lumbar region (principal); M48.061 Spinal stenosis, lumbar region without neurogenic claudication
CPT/HCPCS: 72148

== ENCOUNTER 2019-08-20 19:53 | Emergency (ER) | payer MEDICAID, OTHER ==
[~2019-08-20] VITALS: Ht 157.5 cm; Wt 88.3 kg
[~2019-08-20 19:53] MED LIST changes: +HYDR-34 PO; -HYDR-3816 PO
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
[2019-08-20] MEDS ORDERED: ORPHENADRINE 60 MG/2 ML (NORFLEX) AMP IM ONE (20:30)
[2019-08-20] MEDS ORDERED: KETOROLAC 60 MG/2 ML VIAL IM ONE (20:30)
[2019-08-20 20:52] VITALS: BP 128/97
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
== END 2019-08-20 20:52 | disposition home or self-care (01) ==
LOC: EDUNIT# 19:53 → ER FS 19:56
DX: M54.5 Low back pain (principal); I10 Essential (primary) hypertension; F41.9 Anxiety disorder, unspecified; F32.9 Major depressive disorder, single episode, unspecified; Z88.0 Allergy status to penicillin; Z88.2 Allergy status to sulfonamides; Z88.8 Allergy status to other drugs, medicaments and biological substances; Z77.22 Contact with and (suspected) exposure to environmental tobacco smoke (acute) (chronic)
CPT/HCPCS: 99284

== ENCOUNTER → 2019-10-20 | Outpatient (CLI) | payer MEDICAID ==
--- NOTE | 2019-10-20 11:42 | Diagnostic Imaging Report ---
Right wrist at 10:20. Indication: Right wrist pain. 3 views were obtained. There are no prior studies available for comparison. There is no fracture, dislocation or acute bony abnormality evident. There is mild narrowing of the radiocarpal joint. The soft tissues are unremarkable. IMPRESSION: There is no evidence for an acute bony abnormality. Dictated by: Dictated on workstation # [id number]
== END ==
LOC: RAD FS 10:11
PROVIDERS: ATTEND Nurse Practitioner
DX: M25.531 Pain in right wrist (principal)
CPT/HCPCS: 73110

== ENCOUNTER → 2019-10-27 | Outpatient (CLI) | payer MEDICAID ==
--- NOTE | 2019-10-27 11:51 | Diagnostic Imaging Report ---
PROCEDURE: MRI right joint upper extremity without contrast. TECHNIQUE: Multiplanar, multisequence non contrast-enhanced MRI of the right upper extremity was accomplished. INDICATION: Fall with right wrist pain. COMPARISON: Radiographs from 10/20/2019. FINDINGS: No acute fracture is seen in the right wrist. There is mild edema in the proximal scaphoid. There is motion artifact on multiple sequences. Alignment appears normal. There is moderate fluid in the distal radioulnar joint. There is a tear of the proximal scapholunate ligament. The dorsal and volar components appear to remain intact. The lunotriquetral ligament appears intact. There is a small defect at the radial aspect of the triangular fibrocartilage. The extensor tendons appear intact and the flexor tendons appear intact. No excess tendon sheath fluid is seen. The median nerve appears normal. The musculature demonstrates no focal atrophy or edema. No soft tissue fluid collections or masses are seen. IMPRESSION: 1. Mild edema in the proximal scaphoid may represent a contusion. No fracture line is seen. 2. Tear of the proximal scapholunate ligament. The volar and dorsal components appear to remain intact. 3. Defect at the radial triangular fibrocartilage. Dictated by: Dictated on workstation # [id number]
== END ==
LOC: RAD 09:11
PROVIDERS: ATTEND Nurse Practitioner
DX: S62.024A Nondisplaced fracture of middle third of navicular [scaphoid] bone of right wrist, initial encounter for closed fracture (principal); S52.591A Other fractures of lower end of right radius, initial encounter for closed fracture; S63.591A Other specified sprain of right wrist, initial encounter; W19.XXXA Unspecified fall, initial encounter
CPT/HCPCS: 73221

== ENCOUNTER 2019-11-27 20:16 | Emergency (ER) | payer MEDICAID ==
[~2019-11-27] VITALS: Ht 154.9 cm; Wt 87.6 kg
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
--- NOTE | 2019-11-27 21:22 | ED General ---
General Chief Complaint: Allergic Reaction Stated Complaint: DEPRESSION/STRESS/RASH Nursing Triage Note: PT AMBULATE TO [facility] WITH C/O GENERALIZED RASH STARTING THURSDAY. PT REPORTS GETTING A CORTISONE SHOT AT [place] [place]ER AND 1300 AND A RASH STARTED LATER THAT EVENING. PT REPORTS TAKING BENEDRYL AT HOME. Nursing Sepsis Screen: No Definite Risk Source of Information: Patient History of Present Illness Date Seen by Provider: Nov 27, 2019 Time Seen by Provider: 21:22 Initial Comments 49-year-old female presenting with rash and itching since having a cortisone shot on Thursday. She has been taking Benadryl and hydroxyzine with little improvement. She denies any wheezing or shortness of breath. She has no difficulty with swallowing. She previously has had some similar symptoms and needed to get a steroid shot to help calm her symptoms down. She also has been under extra stress and anxiety which could be contributing to her rash and itchi ng. Allergies and Home Medications Allergies Coded Allergies: Penicillins (Unverified Allergy, Unknown, 09/08/18) Sulfa (Sulfonamide Antibiotics) (Verified Allergy, Unknown, rash, 10/04/18) itching adhesive tape (Verified Allergy, Unknown, hives, 10/04/18) rash amitriptyline (Verified Allergy, Unknown, unknown, 10/04/18) bacitracin (Verified Allergy, Unknown, rash, 10/04/18) hives erythromycin base (Verified Allergy, Unknown, rash, 10/04/18) ibuprofen (Unverified Allergy, Unknown, 09/08/18) metronidazole (Verified Allergy, Unknown, hives, 10/04/18) hives/rash neomycin (Verified Allergy, Unknown, rash, 10/04/18) itching polymyxin B (Verified Allergy, Unknown, rash, 10/04/18) hives prednisolone (Verified Allergy, Unknown, rash, 10/04/18) prednisone (Verified Allergy, Unknown, rash, 10/04/18) Home Medications Albuterol Sulfate 1 Puff Puff, 2 PUFF IH Q4H 1 PUFF = 90 MCG Prescribed by: BRIGID LUTHER on 04/01/19 142 Azithromycin 250 Mg Tablet, 250 MG PO UD TAKE 2 TABLETS TODAY, THEN TAKE 1 TABLET DAILY FOR 4 MORE DAYS Prescribed by: BRIGID LUTHER on 04/01/19 142 Cyclobenzaprine HCl 10 Mg Tablet, 10 MG PO DAILY, (Reported) Famotidine 20 Mg Tablet, 20 MG PO BID Prescribed by: JESSICA COX on 11/27/192142 Gabapentin 300 Mg Capsule, 300 MG PO TID, (Reported) Hydrocodone Bit/Acetaminophen 1 Each Tablet, 325 MG PO TID PRN for PAIN-MODERATE TO SEVERE, (Reported) Hydroxyzine HCl 25 Mg Tablet, 25 MG PO Q4H PRN for RASH Prescribed by: JESSICA COX on 11/27/192142 Metoprolol Tartrate 50 Mg Tablet, 50 MG PO BID, (Reported) Promethazine HCl/Codeine 5 Ml Syrup, 5 ML PO Q6H PRN for cough Prescribed by: BRIGID LUTHER on 04/01/19 142 Quetiapine Fumarate 300 Mg Tab.er.24h, 300 MG PO DAILY, (Reported) Tizanidine HCl 4 Mg Tablet, 4 MG PO Q8H PRN for BACK PAIN, (Reported) Venlafaxine HCl 150 Mg Cap.er.24h, 150 MG PO DAILY, (Reported) Ziprasidone HCl 20 Mg Capsule, 20 MG PO DAILY, (Reported) Patient Home Medication List Home Medication List Reviewed: Yes Review of Systems Review of Systems Constitutional: No chills, No fever EENTM: no symptoms reported Respiratory: no symptoms reported Cardiovascular: no symptoms reported Gastrointestinal: no symptoms reported Genitourinary: no symptoms reported Musculoskeletal: no symptoms reported Skin: see HPI, rash Psychiatric/Neurological: Anxiety Past Xknlqph-Ozpcdj-Itxort Hx Past Med/Social Hx: Reviewed Nursing Past Med/Soc Hx Patient Social History Alcohol Use: Occasionally Uses Number of Drinks Today: AA Alcohol Beverage of Choice: Beer Recreational Drug Use: No Smoking Status: Current Everyday Smoker Type Used: Cigarettes 2nd Hand Smoke Exposure: Yes Recent Foreign Travel: No Contact w/Someone Who Travel: No Recent Infectious Disease Expo: No Recent Hopitalizations: No Physical Abuse: No Sexual Abuse: No Mistreated: No Fear: No Seasonal Allergies Seasonal Allergies: No Past Medical History Surgeries: Yes Hysterectomy, Tubal Ligation Respiratory: No Cardiac: Yes High Cholesterol, Hypertension Neurological: No Neuropathy 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 0oz. 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 Skin: Warm/Dry, Rash (faint diffuse erythematous papular rash) Progress/Results/Core Measures Suspected Sepsis Recent Fever Within 48 Hours: No Infection Criteria Present: None New/Unexplained Altered Menta: No Sepsis Screen: No Definite Risk SIRS Temperature: Pulse: 79 Respiratory Rate: 17 Blood Pressure 139 /78 Mean: 98 Results/Orders My Orders Orders - JESSICA COX MD Dexamethasone Injection (Decadron Inject (11/27/19 21:35) Diphenhydramine Injection (Benadryl Inje (11/27/19 21:35) Famotidine Tablet (Pepcid Tablet) (11/27/19 21:35) Vital Signs/I&O 11/27/19 11/27/19 20:43 21:53 Temp 36.6 Pulse 79 78 Resp 17 18 B/P (MAP) 139/78 (98) 139/81 Pulse Ox 97 O2 Delivery Room Air Room Air Capillary Refill : Less Than 3 Seconds Blood Pressure Mean: 98 Progress Note : Progress Note From review of her chart she has gotten dexamethasone without difficulty in March 2019. Will give a dexamethasone with Benadryl and Pepcid here. Have her take the hydroxyzine on increased schedule and follow-up with the clinic for continued concerns. Also is on H1 and H2 blockade with using Pepcid as well. Departure Impression Primary Impression: Rash and nonspecific skin eruption Additional Impression: Stress and adjustment reaction Disposition: 01 HOME, SELF-CARE Condition: Stable Departure-Patient Inst. Decision time for Depature: 21:40 Referrals: JENNIFER SANTANA MD (PCP/Family) Primary Care Physician Patient Instructions: Skin Rash (DC), Adjustment Disorder Add. Discharge Instructions: Increase the Hydroxyzine to 25 mg every 4-6 hours as needed for rash/itching. Take Pepcid (Famotidine) to help treat for additional histamine blocking effect. Follow up with clinic if not improving All discharge instructions reviewed with patient and/or family. Voiced understanding. Scripts Famotidine (Acid Skates Operator (FAMOTIDINE)) 20 Mg Tablet 20 MG PO BID for Rash for 7 Days, #14 TAB 0 Refills Prov: JESSICA COX MD 11/27/19 Hydroxyzine HCl (Hydroxyzine HCl) 25 Mg Tablet 25 MG PO Q4H PRN for RASH for 5 Days, #30 TAB 0 Refills Prov: JESSICA COX MD 11/27/19 JESSICA COX MD Nov 27, 2019 21:22
[2019-11-27] MEDS ORDERED: DEXAMETHASONE 10 MG/ML (DECADRON) 1 ML VIAL IM STA (21:35)
[2019-11-27] MEDS ORDERED: diphenhydrAMINE 50 MG/ML INJ (BENADRYL) IM STA (21:35)
[2019-11-27] MEDS ORDERED: FAMOTIDINE 20 MG (PEPCID) TABLET PO STA (21:35)
[2019-11-27] MEDS ORDERED: HYDR-700 PO (21:43)
[2019-11-27] MEDS ORDERED: FAMO20TA3 PO (21:43)
[2019-11-27 21:53] VITALS: BP 139/81
== END 2019-11-27 21:53 | disposition home or self-care (01) ==
LOC: EDUNIT# 20:16 → ER FS 20:20
DX: R21 Rash and other nonspecific skin eruption (principal); F43.20 Adjustment disorder, unspecified; I10 Essential (primary) hypertension; F31.9 Bipolar disorder, unspecified; F41.9 Anxiety disorder, unspecified; F17.210 Nicotine dependence, cigarettes, uncomplicated; Z88.0 Allergy status to penicillin; Z88.2 Allergy status to sulfonamides; Z88.8 Allergy status to other drugs, medicaments and biological substances; Z88.6 Allergy status to analgesic agent; Z88.1 Allergy status to other antibiotic agents
CPT/HCPCS: 99284

== ENCOUNTER 2020-02-18 20:40 | Emergency (ER) | payer MEDICAID ==
[~2020-02-18] VITALS: Ht 155 cm; Wt 87.9 kg
[~2020-02-18 20:40] MED LIST changes: +FAMO20TA3 PO; +HYDR-700 PO
--- NOTE | 2020-02-18 20:49 | ED Upper Extremity ---
General Chief Complaint: Upper Extremity Stated Complaint: R THUMB POST SURGERY PAIN History of Present Illness Date Seen by Provider: Feb 18, 2020 Time Seen by Provider: 20:49 Initial Comments 49-year-old female presents with some pain and a small abscess to the base of her right thumb. On January 16 patient had a scope done to her thumb. Along this incision line there is a small abscess. She fell little bit of pain with it. She noticed the abscess yesterday. She denies any systemic complaints that his fe vers chills nausea or vomiting. Allergies and Home Medications Allergies Coded Allergies: Penicillins (Unverified Allergy, Unknown, 09/08/18) Sulfa (Sulfonamide Antibiotics) (Verified Allergy, Unknown, rash, 10/04/18) itching adhesive tape (Verified Allergy, Unknown, hives, 10/04/18) rash amitriptyline (Verified Allergy, Unknown, unknown, 10/04/18) bacitracin (Verified Allergy, Unknown, rash, 10/04/18) hives erythromycin base (Verified Allergy, Unknown, rash, 10/04/18) ibuprofen (Unverified Allergy, Unknown, 09/08/18) metronidazole (Verified Allergy, Unknown, hives, 10/04/18) hives/rash neomycin (Verified Allergy, Unknown, rash, 10/04/18) itching polymyxin B (Verified Allergy, Unknown, rash, 10/04/18) hives prednisolone (Verified Allergy, Unknown, rash, 10/04/18) prednisone (Verified Allergy, Unknown, rash, 10/04/18) Home Medications Albuterol Sulfate 1 Puff Puff, 2 PUFF IH Q4H 1 PUFF = 90 MCG Prescribed by: BRIGID LUTHER on 04/01/19 142 Azithromycin 250 Mg Tablet, 250 MG PO UD TAKE 2 TABLETS TODAY, THEN TAKE 1 TABLET DAILY FOR 4 MORE DAYS Prescribed by: BRIGID LUTHER on 04/01/19 142 Cyclobenzaprine HCl 10 Mg Tablet, 10 MG PO DAILY, (Reported) Famotidine 20 Mg Tablet, 20 MG PO BID Prescribed by: JESSICA COX on 11/27/192142 Gabapentin 300 Mg Capsule, 300 MG PO TID, (Reported) Hydrocodone Bit/Acetaminophen 1 Each Tablet, 325 MG PO TID PRN for PAIN-MODERATE TO SEVERE, (Reported) Hydroxyzine HCl 25 Mg Tablet, 25 MG PO Q4H PRN for RASH Prescribed by: JESSICA COX on 11/27/19 2143 Metoprolol Tartrate 50 Mg Tablet, 50 MG PO BID, (Reported) Promethazine HCl/Codeine 5 Ml Syrup, 5 ML PO Q6H PRN for cough Prescribed by: BRIGID LUTHER on 04/01/19 1428 Quetiapine Fumarate 300 Mg Tab.er.24h, 300 MG PO DAILY, (Reported) Tizanidine HCl 4 Mg Tablet, 4 MG PO Q8H PRN for BACK PAIN, (Reported) Venlafaxine HCl 150 Mg Cap.er.24h, 150 MG PO DAILY, (Reported) Ziprasidone HCl 20 Mg Capsule, 20 MG PO DAILY, (Reported) Patient Home Medication List Home Medication List Reviewed: Yes Review of Systems Constitutional: No chills, No fever Respiratory: no symptoms reported Cardiovascular: no symptoms reported Gastrointestinal: no symptoms reported Genitourinary: no symptoms reported Musculoskeletal: see HPI Skin: see HPI Past Wkezmzk-Oxlejw-Tyvzrc Hx Past Med/Social Hx: Reviewed Nursing Past Med/Soc Hx Patient Social History Alcohol Beverage of Choice: Beer Type Used: Cigarettes 2nd Hand Smoke Exposure: Yes Recent Foreign Travel: No Contact w/Someone Who Travel: No Recent Hopitalizations: No Seasonal Allergies Seasonal Allergies: No Past Medical History Surgeries: Yes Hysterectomy, Tubal Ligation Respiratory: No Cardiac: Yes High Cholesterol, Hypertension Neurological: No Neuropathy 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 0oz. 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 Patient tolerated well with no immediate complications Progress/Results/Core Measures Results/Orders My Orders Orders - RAFAEL CASTRO DO Wound Culture (02/18/20 20:52) Doxycycline Hyclate Tablet (Vibramycin T (02/18/20 21:00) Departure Impression Primary Impression: Subcutaneous abscess Qualified Codes: L02.511 - Cutaneous abscess of right hand Additional Impression: Lumbar back pain Disposition: HOME, SELF-CARE Condition: Stable Departure-Patient Inst. Referrals: JENNIFER SANTANA MD (PCP/Family) Primary Care Physician Patient Instructions: Skin Abscess Add. Discharge Instructions: Call [facility]o [facility] [place] on Thursday morning to make him aware of the abscess into arrange a follow-up time All discharge instructions reviewed with patient and/or family. Voiced understanding. Scripts Doxycycline Hyclate (Doxycycline Hyclate) 100 Mg Tablet 100 MG PO BID, #20 TAB 0 Refills Prov: RAFAEL CASTRO DO 02/18/20 RAFAEL CASTRO DO Feb 18, 2020 20:49
[2020-02-18 20:56] VITALS: BP 139/86
[2020-02-18] MEDS ORDERED: DOXYCYCLINE 100 MG (VIBRAMYCIN) TABLET PO SCH (21:00)
[2020-02-18] MEDS ORDERED: DOXY100T2 PO (21:05)
== END 2020-02-18 21:08 | disposition home or self-care (01) ==
LOC: EDUNIT# 20:40 → ER FS 20:42
DX: L02.511 Cutaneous abscess of right hand (principal); M54.5 Low back pain; I10 Essential (primary) hypertension; G62.9 Polyneuropathy, unspecified; M79.7 Fibromyalgia; F41.9 Anxiety disorder, unspecified; F31.9 Bipolar disorder, unspecified; Z88.0 Allergy status to penicillin; Z88.2 Allergy status to sulfonamides; Z88.8 Allergy status to other drugs, medicaments and biological substances; Z88.1 Allergy status to other antibiotic agents; Z88.6 Allergy status to analgesic agent; Z77.22 Contact with and (suspected) exposure to environmental tobacco smoke (acute) (chronic)
CPT/HCPCS: 87070; 87077; 87186; 87205

== ENCOUNTER 2020-02-21 13:38 | Emergency (ER) | payer MEDICAID ==
[~2020-02-21] VITALS: Ht 154.9 cm; Wt 88.2 kg
[~2020-02-21 13:38] MED LIST changes: +DOXY100T2 PO
--- NOTE | 2020-02-21 14:11 | ED General ---
General Chief Complaint: Cardiac/General Problems Stated Complaint: HYPERTENSION Nursing Triage Note: Patient reports she has taken her blood pressure three times today, states her readings have been high. She states she is having a headache and neck pain, states she is having a flare-up of her chronic headaches and neck pain. She states she went to the [facility] earlier today, states she did not have a change in her daily medications. Nursing Sepsis Screen: No Definite Risk History of Present Illness Date Seen by Provider: Feb 21, 2020 Time Seen by Provider: 13:50 Initial Comments 50-year-old female with history of hypertension presents with concern of elevated blood pressure. Noted this [facility] and then again noted at [facility] just prior to arrival. Denies any recent change to her blood pressure medication. She is on chronic pain medication. Denies any chest pain or shortness of air, swelling of extremities or recent illness. Allergies and Home Medications Allergies Coded Allergies: Penicillins (Unverified Allergy, Unknown, 09/08/18) Sulfa (Sulfonamide Antibiotics) (Verified Allergy, Unknown, rash, 10/04/18) itching adhesive tape (Verified Allergy, Unknown, hives, 10/04/18) rash amitriptyline (Verified Allergy, Unknown, unknown, 10/04/18) bacitracin (Verified Allergy, Unknown, rash, 10/04/18) hives erythromycin base (Verified Allergy, Unknown, rash, 10/04/18) ibuprofen (Unverified Allergy, Unknown, 09/08/18) metronidazole (Verified Allergy, Unknown, hives, 10/04/18) hives/rash neomycin (Verified Allergy, Unknown, rash, 10/04/18) itching polymyxin B (Verified Allergy, Unknown, rash, 10/04/18) hives prednisolone (Verified Allergy, Unknown, rash, 10/04/18) prednisone (Verified Allergy, Unknown, rash, 10/04/18) Home Medications Albuterol Sulfate 1 Puff Puff, 2 PUFF IH Q4H 1 PUFF = 90 MCG Prescribed by: BRIGID LUTHER on 04/01/19 142 Azithromycin 250 Mg Tablet, 250 MG PO UD TAKE 2 TABLETS TODAY, THEN TAKE 1 TABLET DAILY FOR 4 MORE DAYS Prescribed by: BRIGID LUTHER on 04/01/19 142 Cyclobenzaprine HCl 10 Mg Tablet, 10 MG PO DAILY, (Reported) Doxycycline Hyclate 100 Mg Tablet, 100 MG PO BID Prescribed by: RAFAEL CASTRO on 02/18/202104 Famotidine 20 Mg Tablet, 20 MG PO BID Prescribed by: JESSICA COX on 11/27/192142 Gabapentin 300 Mg Capsule, 300 MG PO TID, (Reported) Hydrocodone Bit/Acetaminophen 1 Each Tablet, 325 MG PO TID PRN for PAIN-MODERATE TO SEVERE, (Reported) Hydroxyzine HCl 25 Mg Tablet, 25 MG PO Q4H PRN for RASH Prescribed by: JESSICA COX on 11/27/192142 Metoprolol Tartrate 50 Mg Tablet, 50 MG PO BID, (Reported) Promethazine HCl/Codeine 5 Ml Syrup, 5 ML PO Q6H PRN for cough Prescribed by: BRIGID LUTHER on 04/01/19 142 Quetiapine Fumarate 300 Mg Tab.er.24h, 300 MG PO DAILY, (Reported) Tizanidine HCl 4 Mg Tablet, 4 MG PO Q8H PRN for BACK PAIN, (Reported) Venlafaxine HCl 150 Mg Cap.er.24h, 150 MG PO DAILY, (Reported) Ziprasidone HCl 20 Mg Capsule, 20 MG PO DAILY, (Reported) Patient Home Medication List Home Medication List Reviewed: Yes Review of Systems Review of Systems Constitutional: see HPI, other (chronic pain) EENTM: no symptoms reported Respiratory: no symptoms reported; No cough, No short of breath Cardiovascular: No chest pain, No edema, No palpitations Gastrointestinal: No abdominal pain, No loss of appetite, No nausea, No vomiting Musculoskeletal: No back pain, No joint pain; neck pain (chronic) Skin: No change in color, No rash Psychiatric/Neurological: Headache (chronic); Denies Numbness, Denies Paresthesia Past Ipekpwb-Zlgohe-Irsyiy Hx Past Med/Social Hx: Reviewed Nursing Past Med/Soc Hx Patient Social History Alcohol Use: Occasionally Uses Number of Drinks Today: AA Alcohol Beverage of Choice: Beer Recreational Drug Use: No Smoking Status: Current Everyday Smoker Type Used: Cigarettes 2nd Hand Smoke Exposure: Yes Recent Foreign Travel: No Contact w/Someone Who Travel: No Recent Infectious Disease Expo: No Recent Hopitalizations: No Physical Abuse: No Sexual Abuse: No Mistreated: No Fear: No Seasonal Allergies Seasonal Allergies: No Past Medical History Surgeries: Yes Gallbladder, Hysterectomy, Tubal Ligation Respiratory: No Cardiac: Yes High Cholesterol, Hypertension Neurological: Yes Neuropathy 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 0oz. 83.598573vd; 36.00 BMI Method:Stated General Appearance: No Apparent Distress, WD/WN HEENT: PERRL/EOMI, Normal ENT Inspection Neck: Normal Inspection, Supple Respiratory: Chest Non Tender, Lungs Clear, Normal Breath Sounds Cardiovascular: Regular Rate, Rhythm, No Edema Gastrointestinal: Non Tender, Soft Extremity: Normal Capillary Refill, Non Tender, No Calf Tenderness Neurologic/Psychiatric: Alert, Oriented x3, No Motor/Sensory Deficits Progress/Results/Core Measures Suspected Sepsis Recent Fever Within 48 Hours: No Infection Criteria Present: None New/Unexplained Altered Menta: No Sepsis Screen: No Definite Risk SIRS Temperature: Pulse: 113 Respiratory Rate: 16 Blood Pressure 152 /111 Mean: 125 Results/Orders Vital Signs/I&O 02/21/20 13:41 Temp 35.5 Pulse 113 Resp 16 B/P (MAP) 152/111 (125) Pulse Ox 100 O2 Delivery Room Air Capillary Refill : Less Than 3 Seconds Blood Pressure Mean: 125 Departure Impression Primary Impression: Hypertension Qualified Codes: I10 - Essential (primary) hypertension Disposition: 01 HOME, SELF-CARE Condition: Stable Departure-Patient Inst. Decision time for Depature: 14:08 Referrals: JENNIFER PARDO MD (PCP/Family) Primary Care Physician Patient Instructions: High Blood Pressure (DC) Add. Discharge Instructions: See Dr Pardo in 1 week regarding your blood pressure. You have been advised to increase your amlodipine from 2.5mg to 5mg daily All discharge instructions reviewed with patient and/or family. Voiced understanding. NIA SAXENA DO Feb 21, 2020 14:11
[2020-02-21 14:15] VITALS: BP 130/83
== END 2020-02-21 14:15 | disposition home or self-care (01) ==
LOC: EDUNIT# 13:38 → ER FS 13:39
DX: I10 Essential (primary) hypertension (principal); F31.9 Bipolar disorder, unspecified; F41.9 Anxiety disorder, unspecified; Z88.2 Allergy status to sulfonamides; F17.210 Nicotine dependence, cigarettes, uncomplicated; Z88.0 Allergy status to penicillin; Z88.8 Allergy status to other drugs, medicaments and biological substances
CPT/HCPCS: 99283

== ENCOUNTER → 2020-04-27 | Outpatient (CLI) | payer MEDICAID | LOC: LAB FS 10:27 | PROVIDERS: ATTEND Emergency Medicine | DX: Z01.812 Encounter for preprocedural laboratory examination (principal); Z20.828 Contact with and (suspected) exposure to other viral communicable diseases | CPT/HCPCS: 87635 ==

== ENCOUNTER → 2020-05-14 | Outpatient (CLI) | payer MEDICAID | LOC: LAB FS 10:30 | PROVIDERS: ATTEND Emergency Medicine | DX: Z01.812 Encounter for preprocedural laboratory examination (principal); Z20.828 Contact with and (suspected) exposure to other viral communicable diseases | CPT/HCPCS: 87635 ==

== ENCOUNTER 2020-12-07 10:36 | Emergency (ER) | payer MEDICAID ==
--- NOTE | 2020-12-07 11:00 | ED General ---
General Chief Complaint: General Problems/Pain Stated Complaint: RT ARM TIGHTNESS/TINGLING; LIGHTHEADED Source of Information: Patient Exam Limitations: No Limitations History of Present Illness Date Seen by Provider: Dec 07, 2020 Time Seen by Provider: 10:54 Initial Comments 50-year-old female presents with right arm tingling for the past 7 days, occurring intermittently. No associated weakness or paresthesia. No other neurologic deficit. Denies any recent injury or overuse of her right extremity. Denies chest pain, shortness of air, swelling of extremities. Today she felt lightheaded after she bent over and stood up and felt like she was going to pass out. She called her PCP and was advised to come to the ER for evaluation. She did start a new medication, Zyprexa 2 weeks ago Allergies and Home Medications Allergies Coded Allergies: Penicillins (Unverified Allergy, Unknown, 09/08/18) Sulfa (Sulfonamide Antibiotics) (Verified Allergy, Unknown, rash, 10/04/18) itching adhesive tape (Verified Allergy, Unknown, hives, 10/04/18) rash amitriptyline (Verified Allergy, Unknown, unknown, 10/04/18) bacitracin (Verified Allergy, Unknown, rash, 10/04/18) hives erythromycin base (Verified Allergy, Unknown, rash, 10/04/18) ibuprofen (Unverified Allergy, Unknown, 09/08/18) metronidazole (Verified Allergy, Unknown, hives, 10/04/18) hives/rash neomycin (Verified Allergy, Unknown, rash, 10/04/18) itching polymyxin B (Verified Allergy, Unknown, rash, 10/04/18) hives prednisolone (Verified Allergy, Unknown, rash, 10/04/18) prednisone (Verified Allergy, Unknown, rash, 10/04/18) Home Medications Albuterol Sulfate 1 Puff Puff, 2 PUFF IH Q4H 1 PUFF = 90 MCG Prescribed by: BRIGID LUTHER on 04/01/19 142 Azithromycin 250 Mg Tablet, 250 MG PO UD TAKE 2 TABLETS TODAY, THEN TAKE 1 TABLET DAILY FOR 4 MORE DAYS Prescribed by: BRIGID LUTHER on 04/01/19 142 Cyclobenzaprine HCl 10 Mg Tablet, 10 MG PO DAILY, (Reported) Doxycycline Hyclate 100 Mg Tablet, 100 MG PO BID Prescribed by: RAFAEL CASTRO on 02/18/202104 Famotidine 20 Mg Tablet, 20 MG PO BID Prescribed by: JESSICA COX on 11/27/192142 Gabapentin 300 Mg Capsule, 300 MG PO TID, (Reported) Hydrocodone Bit/Acetaminophen 1 Each Tablet, 325 MG PO TID PRN for PAIN-MODERATE TO SEVERE, (Reported) Hydroxyzine HCl 25 Mg Tablet, 25 MG PO Q4H PRN for RASH Prescribed by: JESSICA COX on 11/27/192142 Metoprolol Tartrate 50 Mg Tablet, 50 MG PO BID, (Reported) Promethazine HCl/Codeine 5 Ml Syrup, 5 ML PO Q6H PRN for cough Prescribed by: BRIGID LUTHER on 04/01/19 142 Quetiapine Fumarate 300 Mg Tab.er.24h, 300 MG PO DAILY, (Reported) Tizanidine HCl 4 Mg Tablet, 4 MG PO Q8H PRN for BACK PAIN, (Reported) Venlafaxine HCl 150 Mg Cap.er.24h, 150 MG PO DAILY, (Reported) Ziprasidone HCl 20 Mg Capsule, 20 MG PO DAILY, (Reported) Patient Home Medication List Home Medication List Reviewed: Yes Review of Systems Review of Systems Constitutional: dizziness; No fever, No malaise, No weakness EENTM: no symptoms reported Respiratory: No cough, No short of breath Cardiovascular: No chest pain, No edema; palpitations; No syncope (BUT feeling light headed when changing positions.) Gastrointestinal: No abdominal pain, No nausea, No vomiting Musculoskeletal: No back pain, No joint pain Psychiatric/Neurological: See HPI; Denies Numbness, Denies Paresthesia, Denies Pre-Existing Deficit; Tingling (R arm, migratory and intermittent); Denies Tremors, Denies Weakness Past Yfbsojc-Eotzlc-Yrehhz Hx Past Med/Social Hx: Reviewed Nursing Past Med/Soc Hx Patient Social History Alcohol Use: Occasionally Uses Number of Drinks Today: AA Alcohol Beverage of Choice: Beer Smoking Status: Current Everyday Smoker Type Used: Cigarettes 2nd Hand Smoke Exposure: Yes Recent Hopitalizations: No Seasonal Allergies Seasonal Allergies: No Past Medical History Surgeries: Yes Gallbladder, Hysterectomy, Tubal Ligation Respiratory: No Cardiac: Yes High Cholesterol, Hypertension Neurological: Yes Neuropathy 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 0oz. 83.634012hk; 36.00 BMI Method:Stated General Appearance: No Apparent Distress, WD/WN Eyes: Bilateral Eye Normal Inspection, Bilateral Eye PERRL, Bilateral Eye EOMI HEENT: PERRL/EOMI, Normal ENT Inspection Neck: Normal Inspection, Supple; No JVD, No Limited Range of Motion, No Lymphadenopathy (L), No Lymphadenopathy (R); Tender Lateral (R and Left lower paraspinal ms and trapez ms. b/l); No Tender Midline Cardiovascular: No Edema, No JVD, Tachycardia (110's) Gastrointestinal: No Organomegaly, Non Tender, Soft Back: Normal Inspection, No CVA Tenderness, No Vertebral Tenderness Extremity: Normal Capillary Refill, Non Tender Neurologic/Psychiatric: Alert, Oriented x3, No Motor/Sensory Deficits, Normal Mood/Affect, representative personal service II-XII Norm as Tested; No Abnormal Gait, No Aphasia, No Disoriented, No Motor Weakness, No Sensory Deficit Skin: Normal Color, Warm/Dry Progress/Results/Core Measures Suspected Sepsis SIRS Temperature: Pulse: Respiratory Rate: Laboratory Tests 12/07/20 11:03: White Blood Count 5.6 Blood Pressure / Mean: Laboratory Tests 12/07/20 11:03: Creatinine 0.76, Platelet Count 308, Total Bilirubin 0.3 Results/Orders Lab Results Laboratory Tests Test 12/07/20 11:03 12/07/20 11:37 Range/Units White Blood Count 5.6 4.3-11.0 10^3/uL Red Blood Count 5.00 4.35-5.85 10^6/uL Hemoglobin 12.6 11.5-16.0 G/DL Hematocrit 40 35-52 % Mean Corpuscular Volume 81 80-99 FL Mean Corpuscular Hemoglobin 25 25-34 PG Mean Corpuscular Hemoglobin Concent 31 L 32-36 G/DL Red Cell Distribution Width 14.6 H 10.0-14.5 % Platelet Count 308 130-400 10^3/uL Mean Platelet Volume 9.4 7.4-10.4 FL Immature Granulocyte % (Auto) 0 % Neutrophils (%) (Auto) 52 42-75 % Lymphocytes (%) (Auto) 39 12-44 % Monocytes (%) (Auto) 7 0-12 % Eosinophils (%) (Auto) 2 0-10 % Basophils (%) (Auto) 0 0-10 % Neutrophils # (Auto) 2.9 1.8-7.8 X 10^3 Lymphocytes # (Auto) 2.2 1.0-4.0 X 10^3 Monocytes # (Auto) 0.4 0.0-1.0 X 10^3 Eosinophils # (Auto) 0.1 0.0-0.3 10^3/uL Basophils # (Auto) 0.0 0.0-0.1 10^3/uL Immature Granulocyte # (Auto) 0.0 0.0-0.1 10^3/uL Sodium Level 139 135-145 MMOL/L Potassium Level 4.0 3.6-5.0 MMOL/L Chloride Level 104 98-107 MMOL/L Carbon Dioxide Level 27 21-32 MMOL/L Anion Gap 8 5-14 MMOL/L Blood Urea Nitrogen 13 7-18 MG/DL Creatinine 0.76 0.60-1.30 MG/DL Estimat Glomerular Filtration Rate > 60 BUN/Creatinine Ratio 17 Glucose Level 107 H 70-105 MG/DL Calcium Level 9.7 8.5-10.1 MG/DL Corrected Calcium 8.5-10.1 MG/DL Total Bilirubin 0.3 0.1-1.0 MG/DL Aspartate Amino Transf (AST/SGOT) 20 5-34 U/L Alanine Aminotransferase (ALT/SGPT) 22 0-55 U/L Alkaline Phosphatase 62 40-136 U/L Troponin I < 0.30 <0.30 NG/ML Total Protein 7.6 6.4-8.2 GM/DL Albumin 4.7 H 3.2-4.5 GM/DL My Orders Orders - ROVENSTINENIA DO Ed Iv/Invasive Line Start (12/07/20 11:04) Cbc With Automated Diff (12/07/20 11:04) Comprehensive Metabolic Panel (12/07/20 11:04) Troponin I Fs (12/07/20 11:04) Urinalysis (12/07/20 11:04) Ekg Tracing (12/07/20 11:04) Chest 1 View Ap/Pa Only (12/07/20 11:04) Ns Iv 1000 Ml (Sodium Chloride 0.9%) (12/07/20 11:45) Vital Signs/I&O 12/07/20 10:51 Temp 36.4 Pulse 116 Resp 16 B/P (MAP) 119/72 (88) Pulse Ox 97 Capillary Refill : ECG Initial ECG Impression Date: Dec 07, 2020 Initial ECG Impression Time: 11:11 Initial ECG Rate: 96 Initial ECG Rhythm: Normal Sinus Initial ECG Intervals: Normal Initial ECG Impression: Normal Initial ECG Comparisson: No Previous ECG Available Diagnostic Imaging Comments COMPARISON: PET scan of 04/01/2019. FINDINGS: Single view of the chest demonstrates clear lungs bilaterally. The heart is normal. There is no pneumothorax and osseous structures normal. IMPRESSION: Negative chest. Dictated on workstation # [id number] Dict: 12/07/20 1121 Trans: 12/07/20 1124 [facility] [id number] Interpreted by: NOREEN COOPER Electronically signed by: Departure Impression Primary Impression: Light headedness Additional Impression: Paresthesia of arm Disposition: 01 HOME, SELF-CARE Condition: Stable Departure-Patient Inst. Decision time for Depature: 11:44 Referrals: JENNIFER PARDO MD (PCP/Family) Primary Care Physician Patient Instructions: Paresthesia (DC), Dizziness, Adult ED Add. Discharge Instructions: Call Dr Pardo to arrange for follow up care All discharge instructions reviewed with patient and/or family. Voiced understanding. NIA SAXENA DO Dec 07, 2020 11:00
[2020-12-07 11:12] LABS: HEMATOCRIT 40 % (35-52); HEMOGLOBIN 12.6 G/DL (11.5-16.0); MEAN CORPUSCULAR HEMOGLOBIN 25 PG (25-34); MEAN CORPUSCULAR HGB CONC 31 G/DL (32-36); MEAN CORPUSCULAR VOLUME 81 FL (80-99); WHITE BLOOD COUNT 5.6 10^3/uL (4.3-11.0)
[2020-12-07 11:13] LABS: BASOPHILS % (AUTO) 0 % (0-10); EOSINOPHILS # (AUTO) 0.1 10^3/uL (0.0-0.3); EOSINOPHILS % (AUTO) 2 % (0-10); LYMPHOCYTES # (AUTO) 2.2 X 10^3 (1.0-4.0); LYMPHOCYTES % (AUTO) 39 % (12-44); MEAN PLATELET VOLUME 9.4 FL (7.4-10.4); MONOCYTES # (AUTO) 0.4 X 10^3 (0.0-1.0); MONOCYTES % (AUTO) 7 % (0-12); NEUTROPHILS # (AUTO) 2.9 X 10^3 (1.8-7.8); NEUTROPHILS % (AUTO) 52 % (42-75); PLATELET COUNT 308 10^3/uL (130-400)
--- NOTE | 2020-12-07 11:24 | Diagnostic Imaging Report ---
INDICATION: Abnormal sensation COMPARISON: 04/01/2019. FINDINGS: Single view of the chest demonstrates clear lungs bilaterally. The heart is normal. There is no pneumothorax and osseous structures normal. IMPRESSION: Negative chest. Dictated by: Dictated on workstation # [id number]
[2020-12-07 11:29] LABS: BUN/CREATININE RATIO 17; CALCIUM 9.7 MG/DL (8.5-10.1); CARBON DIOXIDE 27 MMOL/L (21-32); CHLORIDE 104 MMOL/L (98-107); CREATININE SERUM 0.76 MG/DL (0.60-1.30); GFR ESTIMATED > 60; GLUCOSE 107 MG/DL (70-105); SODIUM 139 MMOL/L (135-145)
[2020-12-07 11:30] LABS: ALANINE AMINOTRANSFERASE 22 U/L (0-55); ALBUMIN 4.7 GM/DL (3.2-4.5); ALKALINE PHOSPHATASE 62 U/L (40-136); BILIRUBIN,TOTAL 0.3 MG/DL (0.1-1.0); TOTAL PROTEIN 7.6 GM/DL (6.4-8.2)
[2020-12-07] MEDS ORDERED: NS IV 1000 ML 1,000 ML IV SCH (11:45)
[2020-12-07 11:48] LABS: CLARITY,URINE CLEAR; COLOR,URINE YELLOW; PROTEIN,URINE NEGATIVE (NEGATIVE)
[2020-12-07 11:49] LABS: BACTERIA,URINE TRACE /HPF; BILIRUBIN,URINE NEGATIVE (NEGATIVE); GLUCOSE, URINE (UA) NEGATIVE (NEGATIVE); KETONES,URINE NEGATIVE (NEGATIVE); LEUKOCYTE ESTERASE ,URINE NEGATIVE (NEGATIVE); NITRITE,URINE NEGATIVE (NEGATIVE); SQUAMOUS EPITHELIAL CELL,UR 0-2 /HPF; WBC,URINE RARE /HPF
[2020-12-07 12:35] VITALS: BP 127/81
== END 2020-12-07 12:35 | disposition home or self-care (01) ==
LOC: EDUNIT# 10:36 → ER FS 10:38
DX: R42 Dizziness and giddiness (principal); R20.2 Paresthesia of skin; I10 Essential (primary) hypertension; F41.9 Anxiety disorder, unspecified; F31.9 Bipolar disorder, unspecified; F17.210 Nicotine dependence, cigarettes, uncomplicated; Z79.899 Other long term (current) drug therapy
CPT/HCPCS: 36415; 71045; 80053; 81000; 84484; 85025; 93005

== ENCOUNTER → 2021-11-13 | Outpatient (CLI) | payer MEDICAID ==
[~2021-11-13] MED LIST changes: +CYCL10TA25 PO; -CYCL10TA9 PO; +TIZA-186 PO; -TIZA4TAB4 PO
--- NOTE | 2021-11-13 16:48 | Diagnostic Imaging Report ---
PROCEDURE: US Thyroid. TECHNIQUE: Multiple real-time grayscale images were obtained of the thyroid in various projections. INDICATION: Hyperparathyroidism. Right lobe of the thyroid measures 5.0 x 2.0 x 2.0 cm and the left lobe measures 4.6 x 1.7 x 1.8 cm. Isthmus is 3 mm in thickness. Both lobes of the thyroid show homogeneous echotexture. No discrete thyroid mass is detected. IMPRESSION: Unremarkable thyroid ultrasound. Dictated by: Dictated on workstation # [id number]
== END ==
LOC: RAD 12:00
PROVIDERS: ATTEND Internal Medicine
DX: E21.0 Primary hyperparathyroidism (principal)
CPT/HCPCS: 76536

== ENCOUNTER → 2022-02-20 | Outpatient (CLI) | payer MEDICAID ==
[2022-02-20 18:32] LABS: BILIRUBIN,TOTAL 0.3 MG/DL (0.1-1.0); CALCIUM 9.7 MG/DL (8.5-10.1); CREATININE SERUM 0.97 MG/DL (0.60-1.30); POTASSIUM 3.8 MMOL/L (3.6-5.0); TOTAL PROTEIN 7.2 GM/DL (6.4-8.2)
[2022-02-20 18:33] LABS: ALBUMIN 4.4 GM/DL (3.2-4.5)
[2022-02-21 15:28] LABS: PHOSPHORUS 3.3 MG/DL (2.3-4.7)
== END ==
LOC: LAB FS 15:45
PROVIDERS: ATTEND Internal Medicine
DX: E21.3 Hyperparathyroidism, unspecified (principal); E55.9 Vitamin D deficiency, unspecified
CPT/HCPCS: 36415; 80053; 82306; 83970; 84100

== ENCOUNTER → 2022-02-27 | Outpatient (CLI) | payer MEDICAID ==
--- NOTE | 2022-02-27 14:46 | Diagnostic Imaging Report ---
PROCEDURE: US Thyroid. TECHNIQUE: Multiple real-time grayscale images were obtained of the thyroid in various projections. INDICATION: Primary hyperparathyroidism. Comparison with 11/13/2021. FINDINGS: The right lobe measures 5 x 1.9 x 2 cm. The left lobe measures 4.4 x 1.4 x 1.9 cm. 2 mm cysts are noted both in the right and left lobe. No solid masses are seen. IMPRESSION: Stable appearing thyroid with no sonographically worrisome features. TI-RADS 2 Dictated by: Dictated on workstation # [id number]
== END ==
LOC: RAD FS 09:52
PROVIDERS: ATTEND Internal Medicine
DX: E21.0 Primary hyperparathyroidism (principal)
CPT/HCPCS: 76536

== ENCOUNTER → 2022-03-04 | Outpatient (CLI) | payer MEDICAID | LOC: LABNPT 15:28 | PROVIDERS: ATTEND Registered Nurse Emergency | DX: Z00.00 Encounter for general adult medical examination without abnormal findings (principal); Z11.3 Encounter for screening for infections with a predominantly sexual mode of transmission; J30.2 Other seasonal allergic rhinitis | CPT/HCPCS: 87491; 87591 ==

== ENCOUNTER → 2022-04-10 | Outpatient (CLI) | payer MEDICAID | LOC: LABNPT 12:06 | PROVIDERS: ATTEND Registered Nurse Emergency | DX: N39.0 Urinary tract infection, site not specified (principal); N89.8 Other specified noninflammatory disorders of vagina | CPT/HCPCS: 87210 ==

== ENCOUNTER → 2022-04-10 | Outpatient (CLI) | payer MEDICAID ==
[~2022-04-10] MED LIST changes: +ALBU8.5H6 IH; +PRD50T PO; -RT-ALBUINH IH
== END ==
LOC: LABNPT 10:25
PROVIDERS: ATTEND Registered Nurse Emergency
DX: N39.0 Urinary tract infection, site not specified (principal); N89.8 Other specified noninflammatory disorders of vagina
CPT/HCPCS: 87077; 87088; 87186; 87491; 87591

== ENCOUNTER 2022-04-18 15:02 | Emergency (ER) | payer MEDICAID ==
[~2022-04-18 15:02] MED LIST changes: -PRD50T PO
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
[2022-04-18] MEDS ORDERED: KETOROLAC 30 MG/ML VIAL IM ONE (15:15)
[2022-04-18] MEDS ORDERED: PRD50T PO (15:17)
[2022-04-18 15:26] VITALS: BP 145/79
== END 2022-04-18 15:25 | disposition home or self-care (01) ==
LOC: EDUNIT# 15:02 → ER FS 15:04
DX: M54.50 Low back pain, unspecified (principal); G89.29 Other chronic pain; F17.210 Nicotine dependence, cigarettes, uncomplicated; Z88.8 Allergy status to other drugs, medicaments and biological substances
CPT/HCPCS: 99284

== ENCOUNTER 2022-07-23 13:29 | Emergency (ER) | payer MEDICAID ==
[~2022-07-23 13:29] MED LIST changes: +PRD50T PO; -QUET300T71 PO; +QUET300T90 PO
[2022-07-23] MEDS ORDERED: NS IV 1000 ML 1,000 ML IV STA ×2 (13:32→15:33)
--- NOTE | 2022-07-23 13:39 | ED Syncope ---
General Chief Complaint: Dizziness/Syncope Stated Complaint: SEIZURE Source of Information: Patient, EMS History of Present Illness Date Seen by Provider: Jul 23, 2022 Time Seen by Provider: 13:29 Initial Comments 52-year-old female presenting by EMS from home after she had a syncopal episode and possible seizure-like activity. Patient states that she does not remember the seizure-like activity. She had stood up quickly to go to the kitchen to get some ice cream and then she passed out. She denies having any chest pain, dizziness, nausea, vomiting, abdominal pain, diarrhea. She does have history of anxiety and multiple mental health issues as well as chronic pain. She takes several sedating medicines and opiates. She admits also using marijuana and occasionally drinking alcohol. She states that she did use marijuana earlier today. Timing/Prior Episodes: No Prior History Symptoms Prior to Episode: None Precipitating Factors: Standing (had just stood up quickly to get to the kitchen as she had wanted some ice cream) Loss of Consciousness: Brief (Seconds) Current Symptoms: Back to Normal; No Blurred Vision, No Chest Pain, No Diaphoresis, No Dizziness, No Headache, No Injury, No Lightheadedness, No Loss of Bladder Control, No Loss of Bowel Control, No Motionless, No Nausea, No Pale, No Shallow/Rapid Breathing, No Weak/Absent Pulse, No Weakness Allergies and Home Medications Allergies Coded Allergies: Penicillins (Unverified Allergy, Unknown, 09/08/18) Sulfa (Sulfonamide Antibiotics) (Verified Allergy, Unknown, rash, 10/04/18) itching adhesive tape (Verified Allergy, Unknown, hives, 10/04/18) rash amitriptyline (Verified Allergy, Unknown, unknown, 10/04/18) bacitracin (Verified Allergy, Unknown, rash, 10/04/18) hives erythromycin base (Verified Allergy, Unknown, rash, 10/04/18) ibuprofen (Unverified Allergy, Unknown, 09/08/18) metronidazole (Verified Allergy, Unknown, hives, 10/04/18) hives/rash neomycin (Verified Allergy, Unknown, rash, 10/04/18) itching polymyxin B (Verified Allergy, Unknown, rash, 10/04/18) hives prednisolone (Verified Allergy, Unknown, rash, 10/04/18) prednisone (Verified Allergy, Unknown, rash, 10/04/18) Patient Home Medication List Home Medication List Reviewed: Yes Albuterol Sulfate (Ventolin Hfa) 1 Puff Puff, 2 PUFF IH Q4H Prescribed by: BRIGID LUTHER on 04/01/19 1428 Atorvastatin Calcium (Atorvastatin Calcium) 20 Mg Tablet, (Reported) Entered as Reported by: FRANNY UGARTE on 04/01/19 135 Azithromycin (Zithromax) 250 Mg Tablet, 250 MG PO UD Prescribed by: BRIGID LUTHER on 04/01/19 1428 Cyclobenzaprine HCl (Cyclobenzaprine HCl) 10 Mg Tablet, 10 MG PO DAILY, (Reported) Entered as Reported by: FRANNY UGARTE on 04/01/19 135 Cyclosporine (Restasis) 1 Each Droperette, (Reported) Entered as Reported by: FRANNY UGARTE on 04/01/19 135 Doxycycline Hyclate (Doxycycline Hyclate) 100 Mg Tablet, 100 MG PO BID Prescribed by: RAFAEL CASTRO on 02/18/202104 Famotidine (Acid Reliner (FAMOTIDINE)) 20 Mg Tablet, 20 MG PO BID Prescribed by: JESSICA COX on 11/27/19 214 Gabapentin (Gabapentin) 300 Mg Capsule, 300 MG PO TID, (Reported) Entered as Reported by: WILL GUZMAN on 09/08/18 184 Hydrocodone Bit/Acetaminophen (HYDROcodone/APAP 7.5/325 TAB) 1 Each Tablet, 325 MG PO TID PRN for PAIN-MODERATE TO SEVERE, (Reported) Entered as Reported by: WILL GUZMAN on 09/08/18 184 Hydroxyzine HCl (Hydroxyzine HCl) 25 Mg Tablet, 25 MG PO Q4H PRN for RASH Prescribed by: JESSICA COX on 11/27/19 214 Latanoprost (Latanoprost) 2.5 Ml Drops, (Reported) Entered as Reported by: FRANNY UGARTE on 04/01/19 135 Metoprolol Tartrate (Metoprolol Tartrate) 50 Mg Tablet, 50 MG PO BID, (Reported) Entered as Reported by: WILL GUZMAN on 09/08/18 184 Prednisone (Prednisone) 50 Mg Tab, 50 MG PO DAILY Prescribed by: LUIGI RAINES MD on 04/18/22 1517 Promethazine HCl/Codeine (Prometh-Codein 6.25-10 mg/5 ml) 5 Ml Syrup, 5 ML PO Q6H PRN for cough Prescribed by: BRIGID LUTHER on 04/01/19 1428 Quetiapine Fumarate (Quetiapine Fumarate ER) 300 Mg Tab.er.24h, 300 MG PO DAILY, (Reported) Entered as Reported by: WILL GUZMAN on 09/08/181845 Tizanidine HCl (Tizanidine HCl) 4 Mg Tablet, 4 MG PO Q8H PRN for BACK PAIN, (Reported) Entered as Reported by: WILL GUZMAN on 09/08/181845 Venlafaxine HCl (Venlafaxine HCl ER) 150 Mg Cap.er.24h, 150 MG PO DAILY, (Reported) Entered as Reported by: WILL GUZMAN on 09/08/181845 Ziprasidone HCl (Ziprasidone HCl) 20 Mg Capsule, 20 MG PO DAILY, (Reported) Entered as Reported by: WILL GUZMAN on 09/08/181845 Review of Systems Constitutional: No chills, No diaphoresis, No fever EENTM: see HPI Respiratory: No short of breath Cardiovascular: No chest pain Gastrointestinal: No diarrhea, No nausea, No vomiting Genitourinary: No dysuria Musculoskeletal: see HPI (chronic pain but no worse since she fell) Skin: no symptoms reported Psychiatric/Neurological: Anxiety Past Mnvewto-Lwzpom-Tchbns Hx Patient Social History Tobacco Use?: Yes Tobacco type used: Cigarettes Smoking Status: Current Everyday Smoker Use of E-Cig and/or Vaping dev: No Substance use?: Yes Substance type: Marijuana Alcohol Use?: Yes Alcohol Frequency: Couple times a week Pt feels they are or have been: No Immunizations Up To Date First/Initial COVID19 Vaccinat: Yes Second COVID19 Vaccination Damian: Yes Third COVID19 Vaccination Date: Yes Seasonal Allergies Seasonal Allergies: No Past Medical History Surgery/Hospitalization HX: Chronic back pain Surgeries: Yes Gallbladder, Hysterectomy, Tubal Ligation Respiratory: No Cardiac: Yes High Cholesterol, Hypertension Neurological: Yes Neuropathy Female Reproductive Disorders: Endometriosis 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 0oz. 83.836356eg; 36.00 BMI Method:Stated General Appearance: No Apparent Distress, Obese HEENT: PERRL/EOMI, Pharynx Normal Neck: Full Range of Motion, Normal Inspection, Non Tender, Supple Cardiovascular: Regular Rate, Rhythm, Normal Peripheral Pulses, Extra Beats Respiratory: Chest Non Tender, Lungs Clear, Normal Breath Sounds, No Accessory Muscle Use, No Respiratory Distress Gastrointestinal: Normal Bowel Sounds, No Pulsatile Mass, Non Tender, Soft Back: No CVA Tenderness Extremities: Normal Capillary Refill, Normal Inspection, No Pedal Edema Neurologic/Psychiatric: Alert, Oriented x3, principal consulting engineer II-XII Norm as Tested Cranial Nerves: Normal Speech, PERRL, Hearing Deficit (L) (chronic hard of hearing), Hearing Deficit (R) (chronic hard of hearing) Motor/Sensory: No Motor Deficit, No Sensory Deficit Skin: Normal Color, Warm/Dry Progress/Results/Core Measures Results/Orders Lab Results Laboratory Tests Test 07/23/22 13:35 07/23/22 14:33 Range/Units White Blood Count 7.0 4.3-11.0 10^3/uL Red Blood Count 4.86 3.80-5.11 10^6/uL Hemoglobin 11.9 11.5-16.0 g/dL Hematocrit 39 35-52 % Mean Corpuscular Volume 79 L 80-99 fL Mean Corpuscular Hemoglobin 25 25-34 pg Mean Corpuscular Hemoglobin Concent 31 L 32-36 g/dL Red Cell Distribution Width 14.6 H 10.0-14.5 % Platelet Count 248 130-400 10^3/uL Mean Platelet Volume 9.7 9.0-12.2 fL Immature Granulocyte % (Auto) 0 % Neutrophils (%) (Auto) 53 42-75 % Lymphocytes (%) (Auto) 37 12-44 % Monocytes (%) (Auto) 8 0-12 % Eosinophils (%) (Auto) 2 0-10 % Basophils (%) (Auto) 0 0-10 % Neutrophils # (Auto) 3.7 1.8-7.8 10^3/uL Lymphocytes # (Auto) 2.6 1.0-4.0 10^3/uL Monocytes # (Auto) 0.6 0.0-1.0 10^3/uL Eosinophils # (Auto) 0.1 0.0-0.3 10^3/uL Basophils # (Auto) 0.0 0.0-0.1 10^3/uL Immature Granulocyte # (Auto) 0.0 0.0-0.1 10^3/uL Prothrombin Time 12.5 12.2-14.7 SEC INR Comment 0.9 0.8-1.4 Activated Partial Thromboplast Time 25 24-35 SEC Sodium Level 139 135-145 MMOL/L Potassium Level 4.0 3.6-5.0 MMOL/L Chloride Level 101 98-107 MMOL/L Carbon Dioxide Level 27 21-32 MMOL/L Anion Gap 11 5-14 MMOL/L Blood Urea Nitrogen 9 7-18 MG/DL Creatinine 0.91 0.60-1.30 MG/DL Estimat Glomerular Filtration Rate 76 BUN/Creatinine Ratio 10 Glucose Level 110 H 70-105 MG/DL Calcium Level 9.5 8.5-10.1 MG/DL Corrected Calcium 9.3 8.5-10.1 MG/DL Magnesium Level 1.8 1.6-2.4 MG/DL Total Bilirubin 0.4 0.1-1.0 MG/DL Aspartate Amino Transf (AST/SGOT) 16 5-34 U/L Alanine Aminotransferase (ALT/SGPT) 14 0-55 U/L Alkaline Phosphatase 55 40-136 U/L Troponin I < 0.30 <0.30 NG/ML Pro-B-Type Natriuretic Peptide 90.9 <125.0 PG/ML Total Protein 7.3 6.4-8.2 GM/DL Albumin 4.3 3.2-4.5 GM/DL Lipase 25 8-78 U/L Serum Alcohol < 10 <10 MG/DL Urine Color YELLOW Urine Clarity CLEAR Urine pH 6.0 5-9 Urine Specific [place] 1.010 L 1.016-1.022 Urine Protein NEGATIVE NEGATIVE Urine Glucose (UA) NEGATIVE NEGATIVE Urine Ketones NEGATIVE NEGATIVE Urine Nitrite NEGATIVE NEGATIVE Urine Bilirubin NEGATIVE NEGATIVE Urine Urobilinogen 1.0 < = 1.0 MG/DL Urine Leukocyte Esterase NEGATIVE NEGATIVE Urine RBC (Auto) NEGATIVE NEGATIVE Urine RBC NONE /HPF Urine WBC 0-2 /HPF Urine Squamous Epithelial Cells 2-5 /HPF Urine Crystals NONE /LPF Urine Bacteria FEW H /HPF Urine Casts PRESENT /LPF Urine Hyaline Casts 0-2 H /LPF Urine Mucus NEGATIVE /LPF Urine Culture Indicated NO Urine Opiates Screen POSITIVE H NEGATIVE Urine Oxycodone Screen NEGATIVE NEGATIVE Urine Methadone Screen NEGATIVE NEGATIVE Urine Propoxyphene Screen NEGATIVE NEGATIVE Urine Barbiturates Screen NEGATIVE NEGATIVE Ur Tricyclic Antidepressants Screen POSITIVE H NEGATIVE Urine Phencyclidine Screen NEGATIVE NEGATIVE Urine Amphetamines Screen NEGATIVE NEGATIVE Urine Methamphetamines Screen NEGATIVE NEGATIVE Urine Benzodiazepines Screen NEGATIVE NEGATIVE Urine Cocaine Screen NEGATIVE NEGATIVE Urine Cannabinoids Screen POSITIVE H NEGATIVE My Orders Orders - JESSICA COX MD Cbc With Automated Diff (07/23/22 13:31) Magnesium (07/23/22 13:31) Chest 1 View Ap/Pa Only (07/23/22 13:31) Ekg Tracing (07/23/22 13:31) Comprehensive Metabolic Panel (07/23/22 13:31) Protime With Inr (07/23/22 13:31) Partial Thromboplastin Time (07/23/22 13:31) O2 (07/23/22 13:31) Monitor-Rhythm Ecg Trace Only (07/23/22 13:31) Ed Iv/Invasive Line Start (07/23/22 13:31) Lipase (07/23/22 13:31) Troponin I Fs (07/23/22 13:31) Probnp Fs (07/23/22 13:31) Ct Head/Cervical Spine Wo (07/23/22 13:31) Ns Iv 1000 Ml (Sodium Chloride 0.9%) (07/23/22 13:32) Seizure Precautions (07/23/22 13:32) Ua Culture If Indicated (07/23/22 13:33) Drug Screen Stat (Urine) (07/23/22 13:33) Alcohol (07/23/22 13:33) Ns Iv 1000 Ml (Sodium Chloride 0.9%) (07/23/22 15:33) Nicotine Patch (Nicoderm Patch) (07/23/22 16:49) Vital Signs/I&O 07/23/22 13:30 Temp 36.2 Pulse 105 Resp 16 B/P (MAP) 130/71 (90) Pulse Ox 94 O2 Delivery Room Air Progress Progress Note #1: Progress Note Potential diagnosis of syncope, dehydration, new onset seizures, electrolyte imbalance, renal failure, hepatic failure, stroke, brain mass, drug abuse, urinary tract infection. Peripheral IV was established by EMS prior to arrival. Obtain blood for testing of complete blood count, comprehensive metabolic profile, cardiac enzymes, clotting factors, magnesium, lipase. Urinalysis with urine drug screen, alcohol level. CT scan of head and cervical spine since she reports having syncopal episode and falling to the ground. She did not lose control of bowels or bladder. Chest xray to look for infiltrate versus mass versus effusion versus pneumothorax. Obtain electrocardiogram to look at patient's heart rate and rhythm. Placed on cardiac environmental monitoring specialist to watch the heart rate and rhythm. On my initial interpretation of her monitoring she has sinus rhythm with a heart rate of 97 and showing frequent PVCs. My initial interpretation of her electrocardiogram shows sinus tachycardia with frequent ventricular premature complexes. Heart rate is 100 bpm. MN interval 157 ms. She has no acute ST elevation. QT interval of 361 ms and a QTc interval 418 ms. Overall appears similar to tracing from December 07, 2020 but has increased PVCs today. Progress Note #2: Progress Note Blood count does not show elevated WBC for infection or low hemoglobin for anemia. Comprehensive metabolic profile without acute significant abnormality and not showing renal failure or hepatic failure. Troponin is negative for acute myocardial infarction. ETOH level is negative which helps to rule out alcohol intoxication as a cause of her syncope. Coagulation factors were not elevated or showing coagulopathy findings. My interpretation and review of her chest x-ray single view film was that she did not have any acute process or infiltrate or effusion. On my interpretation and review of her CT scan of the head without contrast I did not appreciate any acute intracranial hemorrhage or bleeding and no mass or tumor. Progress Note #3: Time: 14:24 Progress Note I reviewed the radiologist report on the 1 view chest x-ray and the CT scan of the head without contrast. They noted no acute process in her chest. In terms of her head and cervical spine they did not see any acute fracture or bleeding. There was some nonspecific hypodensity areas in the frontal lobes and basal ganglia. There is no acute finding. Progress Note #4: Time: 14:42 Progress Note Patient was able to provide a urine specimen for urinalysis and drug testing. So far from her exam as well as the vitals signs and test results to this point it looks like she might have some dehydration as she was tachycardic on arrival and it has improved with the IV fluid hydration. Certainly if she stood up fast to go to the kitchen to get ice cream she may have had a vasovagal syncopal episode to cause her to faint or pass out. She did better when she got up to get a urine specimen. She denies having dizziness or lightheadedness. Progress Note #5: Time: 15:11 Progress Note As I was reviewing the labs and imaging results with patient, her mother was in the room as well. I was trying to reassure them that outside of some dehydration I had not found any specific cause for her to have fainted in had a syncopal episode today. Her blood count was not showing anemia or high white blood cell count for infection, the electrolytes and salts in her blood, kidney function, liver function have all looked okay. Her cardiac testing had been negative for acute myocardial infarction or ischemia. She did not show signs of pneumonia or heart failure lung mass on the chest x-ray. Her urine was back while I was talking to the patient and it did not show signs of infection. Her urine drug screen was positive for the marijuana that she admitted to as well as the opiates that she is chronically prescribed and tricyclic antidepressants that she is chronically prescribed. She did not have any other illicit substances in her drug screen to have caused her more reason to pass out or faint. As it was discussing about possible additional outpatient testing to work-up the syncope the mom mentioned that she was concerned about Basil having cold hands and feet and concerned about circulation issue. This has been a chronic thing for years but her Mom felt that it might be contributing to what happened today. Mom said that she felt that Basil needed to be admitted to the hospital somewhere rather than be sent home. Mom said that Basil's son also was concerned to the point that he wanted her to be admitted to a hospital so that additional testing/monitoring could be done. I told them i could call and talk to Dr. Yoder, the nurse receptionist hospitalist for Dr. Holland if the patient went to [place]. I would have to discuss it with the hospitalist doctor as they would have to accept an admit. I let them know that EMS had told me that for ambulance transports that the insurance companies would decline to pay for transport to a further hospital when a closer one was available to provide the service that was needed. I brought this up because Mom states that she goes to [facility] for her personal care and was not happy with the patient possibly going to [facility]. I told them I could check with [facility] or [facility] as well but that would involve speaking to a different provider. they discussed it amongst them selves and they were agreeable with checking to see if [facility] had beds and availability to care for her. I called Dr. Molina, nurse receptionist physician for [facility]. After reviewing the labs, presentation, test results here and some improvement with hydration she took a few minutes to review the chart and then accepted the patient for observation admit to [facility]. When [facility] was contacted they said the patient would have to wait until after 6 pm to come to [facility] when an additional nurse came in for staffing. Otherwise the patient would have to go to another facility. I checked with the patient and she voiced that she was willing to wait until after 6 pm so she could have a nurse available to care for her once she got to [facility]. Will continue some maintenance IVF hydration with NS at 100 mL/hr. Continue Cardiac telemetry monitoring and patient continues to show sinus rhythm with rate in 90s and occasional PVCs. Initial ECG Impression Date: Jul 23, 2022 Initial ECG Impression Time: 13:32 Initial ECG Rate: 100 Initial ECG Rhythm: S.Tach, PVC Initial ECG Comparisson: Changed (similar to 12/07/2020 but more PVCs on tracing today) Comment My initial interpretation of her electrocardiogram shows sinus tachycardia with frequent ventricular premature complexes. Heart rate is 100 bpm. MN interval 157 ms. She has no acute ST elevation. QT interval of 361 ms and a QTc interval 418 ms. Overall appears similar to tracing from December 07, 2020 but has increased PVCs today. Diagnostic Imaging Diagonstic Imaging: Xray Plain Films/CT/US/NM/MRI: chest Comments [facility]. [place], [place] NAME: BASIL THORNTON MED REC#: [id number] PT STATUS: REG ER : 1970 PHYSICIAN: JESSICA COX MD ADMIT DATE: 07/23/22/ER FS Draft Date of Exam:07/23/22 CHEST 1 VIEW AP/PA ONLY INDICATION: Cough and syncopal episode. EXAMINATION: Chest 07/23/2022 COMPARISON: 12/07/2020 FINDINGS: The cardiomediastinal silhouette is unremarkable. The pulmonary vasculature is within normal limits. The lungs and pleural spaces are clear. IMPRESSION: No evidence of an acute cardiopulmonary process. Dictated on workstation # [id number] Dict: 07/23/22 1412 Trans: 07/23/22 1413 CVB [id number] Interpreted by: JULIOCESAR TREVINO MD Electronically signed by: Reviewed: Reviewed by Me (I reviewed radiologist report at [id number]) Diagonstic Imaging: CT Plain Films/CT/US/NM/MRI: c-spine, head Comments [facility] [place] [place] NAME: BASIL THORNTON [facility] REC#: [id number] PT STATUS: REG ER : 1970 PHYSICIAN: JESSICA COX MD ADMIT DATE: 07/23/22/ER FS Draft Date of Exam:07/23/22 CT HEAD/CERVICAL SPINE WO PROCEDURE: CT head and CT cervical spine without contrast. TECHNIQUE: Multiple contiguous axial images were obtained through the brain and cervical spine without the use of intravenous contrast. Sagittal and coronal reformations through the cervical spine were then performed. Auto Exposure Controls were utilized during the CT exam to meet ALARA standards for radiation dose reduction. INDICATION: Syncope and possible seizure Ventricles and sulci are within normal limits for size. There is no evidence of hemorrhage. There is mild subcortical low density within the posterior frontal lobes and within the insular regions, greater on the left. There is no abnormal mass effect or shift of midline structures. Calvarium is intact and the visualized paranasal sinuses are clear. IMPRESSION: Nonspecific subcortical low density of uncertain chronicity. There is no acute abnormality. MRI may be of value for additional characterization. CT CERVICAL SPINE: COMPARISON: 05/12/2019 CT CERVICAL SPINE: Multiple contiguous axial CT images of the cervical spine were obtained with sagittal and coronal reformatted images produced. FINDINGS: There is loss of normal cervical lordosis. Vertebral body heights and disc spaces are maintained. Prevertebral soft tissues are unremarkable, and there is no evidence of paraspinous hematoma. IMPRESSION: Loss of normal cervical lordosis which may be due to positioning or muscle spasm. There is, otherwise, no CT evidence of acute cervical spinal abnormality. Dictated on workstation # [id number] Dict: 07/23/22 1355 Trans: 07/23/22 1414 CVB [id number] Interpreted by: ROBERT HOOPER MD Electronically signed by: Reviewed: Reviewed by Me (I reviewed the radiologist report at 1424) Departure Impression Primary Impression: Syncopal episodes Qualified Codes: R55 - Syncope and collapse Additional Impressions: Dehydration Frequent unifocal PVCs Disposition: XFER SHT-TRM HOSP Condition: Stable Transfer Transfer Reason: Patient preference (Patient and family wanted hospital other than [place] if possible. ) Time Spoke to Accepting Phy: 15:22 Transfer Progress Notes d/w Dr. Molina, nurse receptionist physician for hospital service at [facility]. Dr. Holland's clinic does originate from [facility] so Dr. Molina would be one to do admit if she went there. I reviewed the presentation of the patient from EMS as well as findings here in the ED and that testing has looked ok without signs of severe infection, heart attack, heart failure, pneumonia, UTI, Stroke, intracranial bleeding or mass. Patient had improved heart rate from over 100 bpm to 80s and sinus rhythm with IVF here in the ED. Patient still has occasional PVCs on telemetry but not as many as when she first arrived. No pneumonia on CXR. CT head had not shown any acute abnormality but they had noted she had some hypodensity in frontal lobes. Dr. Molina reviewed the chart herself and advised me she would admit the patient as observation status to the [facility]. Transfer Facility: [facility] Method of Transfer: EMS Departure-Patient Inst. Referrals: KATYA HILL APRN (PCP) Primary Care Physician RYDER HOLLAND MD (Family) Primary Care Physician Patient Instructions: Fainting, Adult ED Add. Discharge Instructions: Stay well-hydrated and make sure you are drinking plenty of water and electrolyte drinks. Follow-up with your primary care provider for continued concerns. If you have recurrent episodes they may want to do additional outpatient testing to further evaluate your episode of fainting beyond what is available here in the emergency department. All discharge instructions reviewed with patient and/or family. Voiced understanding. JESSICA COX MD Jul 23, 2022 13:39
[2022-07-23 13:41] LABS: BASOPHILS % (AUTO) 0 % (0-10); EOSINOPHILS # (AUTO) 0.1 10^3/uL (0.0-0.3); EOSINOPHILS % (AUTO) 2 % (0-10); HEMATOCRIT 39 % (35-52); HEMOGLOBIN 11.9 g/dL (11.5-16.0); LYMPHOCYTES # (AUTO) 2.6 10^3/uL (1.0-4.0); LYMPHOCYTES % (AUTO) 37 % (12-44); MEAN CORPUSCULAR HEMOGLOBIN 25 pg (25-34); MEAN CORPUSCULAR HGB CONC 31 g/dL (32-36); MEAN CORPUSCULAR VOLUME 79 fL (80-99); MEAN PLATELET VOLUME 9.7 fL (9.0-12.2); MONOCYTES # (AUTO) 0.6 10^3/uL (0.0-1.0); MONOCYTES % (AUTO) 8 % (0-12); NEUTROPHILS # (AUTO) 3.7 10^3/uL (1.8-7.8); NEUTROPHILS % (AUTO) 53 % (42-75); PLATELET COUNT 248 10^3/uL (130-400)
[2022-07-23 13:56] LABS: INR 0.9 (0.8-1.4); PROTHROMBIN TIME PATIENT 12.5 SEC (12.2-14.7)
[2022-07-23 14:12] LABS: SODIUM 139 MMOL/L (135-145)
[2022-07-23 14:13] LABS: ALANINE AMINOTRANSFERASE 14 U/L (0-55); ALBUMIN 4.3 GM/DL (3.2-4.5); ALKALINE PHOSPHATASE 55 U/L (40-136); BILIRUBIN,TOTAL 0.4 MG/DL (0.1-1.0); BUN/CREATININE RATIO 10; CALCIUM 9.5 MG/DL (8.5-10.1); CARBON DIOXIDE 27 MMOL/L (21-32); CHLORIDE 101 MMOL/L (98-107); CREATININE SERUM 0.91 MG/DL (0.60-1.30); GFR ESTIMATED 76; GLUCOSE 110 MG/DL (70-105); LIPASE 25 U/L (8-78); MAGNESIUM 1.8 MG/DL (1.6-2.4); TOTAL PROTEIN 7.3 GM/DL (6.4-8.2)
--- NOTE | 2022-07-23 14:13 | Diagnostic Imaging Report ---
INDICATION: Cough and syncopal episode. EXAMINATION: Chest 07/23/2022 COMPARISON: 12/07/2020 FINDINGS: The cardiomediastinal silhouette is unremarkable. The pulmonary vasculature is within normal limits. The lungs and pleural spaces are clear. IMPRESSION: No evidence of an acute cardiopulmonary process. Dictated by: Dictated on workstation # [id number]
--- NOTE | 2022-07-23 14:15 | Diagnostic Imaging Report ---
PROCEDURE: CT head and CT cervical spine without contrast. TECHNIQUE: Multiple contiguous axial images were obtained through the brain and cervical spine without the use of intravenous contrast. Sagittal and coronal reformations through the cervical spine were then performed. Auto Exposure Controls were utilized during the CT exam to meet ALARA standards for radiation dose reduction. INDICATION: Syncope and possible seizure Ventricles and sulci are within normal limits for size. There is no evidence of hemorrhage. There is mild subcortical low density within the posterior frontal lobes and within the insular regions, greater on the left. There is no abnormal mass effect or shift of midline structures. Calvarium is intact and the visualized paranasal sinuses are clear. IMPRESSION: Nonspecific subcortical low density of uncertain chronicity. There is no acute abnormality. MRI may be of value for additional characterization. CT CERVICAL SPINE: COMPARISON: 05/12/2019 CT CERVICAL SPINE: Multiple contiguous axial CT images of the cervical spine were obtained with sagittal and coronal reformatted images produced. FINDINGS: There is loss of normal cervical lordosis. Vertebral body heights and disc spaces are maintained. Prevertebral soft tissues are unremarkable, and there is no evidence of paraspinous hematoma. IMPRESSION: Loss of normal cervical lordosis which may be due to positioning or muscle spasm. There is, otherwise, no CT evidence of acute cervical spinal abnormality. Dictated by: Dictated on workstation # [id number]
[2022-07-23 14:41] LABS: BILIRUBIN,URINE NEGATIVE (NEGATIVE); CLARITY,URINE CLEAR; COLOR,URINE YELLOW; GLUCOSE, URINE (UA) NEGATIVE (NEGATIVE); KETONES,URINE NEGATIVE (NEGATIVE); LEUKOCYTE ESTERASE ,URINE NEGATIVE (NEGATIVE); NITRITE,URINE NEGATIVE (NEGATIVE); PROTEIN,URINE NEGATIVE (NEGATIVE)
[2022-07-23 14:46] LABS: BACTERIA,URINE FEW /HPF; HYALINE CASTS, URINE 0-2 /LPF; WBC,URINE 0-2 /HPF
[2022-07-23 14:51] LABS: AMPHETAMINE SCREEN, URINE NEGATIVE (NEGATIVE); BARBITURATE SCREEN URINE NEGATIVE (NEGATIVE); BENZODIAZEPINES SCREEN URINE NEGATIVE (NEGATIVE); CANNABINOID SCREEN, URINE POSITIVE (NEGATIVE); COCAINE SCREEN URINE NEGATIVE (NEGATIVE); METHADONE STAT NEGATIVE (NEGATIVE); OPIATE SCREEN URINE POSITIVE (NEGATIVE); OXYCODONE STAT NEGATIVE (NEGATIVE); PROPOXYPHENE STAT NEGATIVE (NEGATIVE); TRICYCLIC ANTIDEPRESSANTS SCRE POSITIVE (NEGATIVE)
[2022-07-23] MEDS ORDERED: NICOTINE 21 MG (NICODERM) PATCH TD STA (16:49)
[2022-07-23] MEDS ORDERED: ALPRAZolam 0.25 MG (XANAX) TAB PO STA (18:16)
[2022-07-23 18:36] VITALS: BP 117/70
== END 2022-07-23 18:36 | disposition short-term general hospital (02) ==
LOC: EDUNIT# 13:29 → ER FS 13:30
DX: R55 Syncope and collapse (principal); E86.0 Dehydration; I49.3 Ventricular premature depolarization; E66.9 Obesity, unspecified; F17.210 Nicotine dependence, cigarettes, uncomplicated; Z68.36 Body mass index [BMI] 36.0-36.9, adult; W18.30XA Fall on same level, unspecified, initial encounter
CPT/HCPCS: 36415; 70450; 71045; 72125; 80053; 80306; 80320; 81000; 83690; 83735; 83880; 84484; 85025; 85610; 85730; 93005; 93041

== ENCOUNTER → 2022-08-25 | Outpatient (CLI) | payer MEDICAID | LOC: CARD 13:05 | PROVIDERS: ATTEND Registered Nurse Emergency | DX: M54.32 Sciatica, left side (principal); I49.3 Ventricular premature depolarization; R00.2 Palpitations | CPT/HCPCS: 93225; 93226; 93306 ==